=== PATIENT | female | born 1940 | race Caucasian/White ===

== ENCOUNTER → 2016-07-21 | Outpatient (CLI) | payer MEDICARE ==
[2016-07-21 13:41] LABS: Blood Urea Nitrogen 17 mg/dL (7-17); Non-African American GFR(MDRD) >60 (>60 ml/min/1.73 sqM)
--- NOTE | 2016-07-21 14:57 | CT ---
EXAMINATION TYPE: CT urogram wo/w con DATE OF EXAM: 07/21/2016 2:41 PM COMPARISON: NONE HISTORY: Microscopic hematuria TECHNIQUE: Helical acquisition through the abdomen and pelvis was obtained both with and without intr avenous contrast but without oral contrast. Delayed images were also obtained. Three-dimensional volu me acquired imaging was obtained at the CT scanner. CT DLP: 1420.8 mGycm Automated exposure control for dose reduction was used. CONTRAST: Performed with IV Contrast, patient injected with 100 mL of Omnipaque 350. FINDINGS: There is atelectatic change of both lung bases. There is no pleural or pericardial fluid. Within the abdomen, there are gallstones within the gallbladder. The liver and spleen are normal. Both adrenal glands appear normal. The pancreas is unremarkable. The collecting systems unremarkable. Both ureters are normal. The bladder is unremarkable. The uterus and ovaries are not visualized. There is diverticular change throughout the sigmoid colon without radiographic evidence of diverticul itis. There is a moderate stool load. The appendix is not visualized. Small bowel loops are normal. There is no free fluid and no free air identified. There is degenerative disc disease in the lower thoracic and lower lumbar spines. No acute osseous le pan is seen. IMPRESSION: 1. NORMAL CT UROGRAM. WE HAVE NOT DETECTED THE CAUSE OF THE PATIENT'S HEMATURIA. 2. CHOLELITHIASIS. 3. UNCOMPLICATED DIVERTICULOSIS OF THE SIGMOID COLON. 4. CONSTIPATION. 5. DEGENERATIVE CHANGE WITHIN THE SPINE.
== END | disposition home or self-care (01) ==
LOC: RADCTMAIN 12:38
PROVIDERS: ATTEND Internal Medicine
DX: K57.30 Diverticulosis of large intestine without perforation or abscess without bleeding (principal); K80.20 Calculus of gallbladder without cholecystitis without obstruction; K59.00 Constipation, unspecified; R31.29 Other microscopic hematuria
CPT/HCPCS: 82565; 84520; 74178; 36415; 74400; Q9967

== ENCOUNTER 2016-09-10 07:27 | Day surgery (SDC) | payer MEDICARE ==
[2016-09-03 14:30] VITALS: BMI 29.2
[~2016-09-10 07:27] MED LIST: HYDROmorphone 1 MG/ML 1 ML SYRINGE IVP PRN; LACTATED RINGERS 1,000 ML IV SCH; MIDAZOLAM 2 MG/2 ML VIAL IV PRN; ONDANSETRON 4 MG/2 ML VIAL IVP ONE; ceFAZolin 2 GM in SODIUM CHLORIDE 0.9% 100 ML IVPB ONE
[2016-09-10 07:56] VITALS: TEMP 97.2
[2016-09-10 08:37] LABS: INR 1.3 (<1.1); Prothrombin Time 12.9 sec (9.0-12.0)
[2016-09-10] MEDS ORDERED: fentaNYL (PF) 50 MCG/ML 2 ML AMP ONE (09:37)
[2016-09-10] MEDS ORDERED: GLYCOPYRROLATE 0.2 MG/ML 2 ML VIAL ONE (09:37)
[2016-09-10] MEDS ORDERED: PROPOFOL 10 MG/ML 20 ML VIAL IV ONE (09:37)
[2016-09-10] MEDS ORDERED: MIDAZOLAM 2 MG/2 ML VIAL ONE (09:37)
[2016-09-10] MEDS ORDERED: NEOSTIGMINE 1 MG/ML 10 ML VIAL ONE (09:37)
[2016-09-10] MEDS ORDERED: SUCCINYLCHOLINE CHLORIDE 100 MG/5 ML SYR IV ONE (09:37)
[2016-09-10] MEDS ORDERED: HYDROmorphone (PF) 1 MG/ML ONE (09:37)
[2016-09-10] MEDS ORDERED: LIDOCAINE 1% INJ 10MG/ML (20 ML MDV) ONE (09:37)
[2016-09-10] MEDS ORDERED: ROCURONIUM BROMIDE 10 MG/ML 10 ML VIAL IV ONE (09:37)
[2016-09-10] MEDS ORDERED: BUPIVACAIN-EPI 0.25%-1:200,000 30 ML VIAL SQ ONE (09:59)
[2016-09-10] MEDS ORDERED: LACTATED RINGERS 1,000 ML IV ONE ×2 (10:26→13:40)
[2016-09-10] MEDS ORDERED: HYDROcodone/APAP 5-325MG 1 EACH TAB PO ONE (12:15)
[2016-09-10 12:21] VITALS: RESP 16
--- NOTE | 2016-09-10 12:32 | P.OP ---
Date of Procedure: 09/10/16 Preoperative Diagnosis: Cholelithiasis Atrial fibrillation Postoperative Diagnosis: Same Procedure(s) Performed: Laparoscopic cholecystectomy Anesthesia: CHAD, local Surgeon: Jasmyne Ma Estimated Blood Loss (ml): 5 Pathology: other Condition: other (ASA3) Disposition: PACU Indications for Procedure: 76 years old female presents with gallstones. CT scan showed gallstones. Informed consent obtained and patient elected to undergo laparoscopic cholecystectomy possible open. The risks, benefits and potential complications explained including bleeding, infection, and inadvertent bile duct injury. Description of Procedure: The patient was brought to the operating room and placed in supine position with both arms out. General anesthesia with endotracheal intubation was performed as per anesthesia team. Chlorhexidine was used to prep the abdomen followed by application of sterile drapes. A timeout was performed to verify correct patient and correct procedure. Patient was confirmed to receive perioperative IV antibiotics , heparin 5000 units subcutaneous injection and bilateral SCDs were placed. A 5 mm skin incision was made below the left costal margin at the anterior axillary line. A Veress needle was inserted and pneumoperitoneum was established to a pressure of 15 mmHg. A 5 mm Optiview trocar was loaded on a 5 mm 30 laparoscope and the peritoneal cavity was entered under direct vision using the Optiview technique. Additional 5 mm trocar was placed in the supraumbilical location and two 5 mm trocars along the right subcostal margin. The left 5 mm trocar was upsized to 10mm. The patient was placed in reverse Trendelenburg with right side up. The fundus of the gallbladder was grasped with an atraumatic grasper and was retracted over the dome of the liver. The infundibulum was grasped with an atraumatic grasper and retracted towards the pelvis to expose the Calot's triangle. Lateral and medial peritoneal attachment of the gallbladder bladder was dissected. Circumferential dissection was carried out around the cystic artery and the cystic duct to obtain adequate length for clip application. All the surrounding fibrofatty tissue were removed. Critical view was obtained with cystic duct and cystic artery as the only two structures entering the gallbladder. Two clips were applied on the patient's side and one on the specimen side on the cystic duct first followed by the cystic artery. Endoshears were used to divide the cystic duct and the cystic artery. The gallbladder was taken off the liver bed using a L-hook. It was placed in an endocatch specimen bag and removed through the 10mm port. The gallbladder was passed off as a specimen. The abdominal cavity was inspected. The clips on the cystic duct and cystic artery stump were intact and no bleeding noted from the liver bed. All the trocar sites were examined and no evidence of bleeding. The 10mm port site was closed with two transfascial sutures of 0 Vicryl using a Carlton Odilon device. The pneumoperitoneum was evacuated and all the trocars were removed. Local anesthetic was infiltrated along the trocar sites and incisions were closed using 4-0 Monocryl followed by application of Dermabond skin glue. The sponge, instrument and needle count were correct x2. Patient was extubated and taken to post anesthesia care unit in stable condition.
[2016-09-10 13:25] VITALS: BP 139/58; PULSE 59
== END 2016-09-10 14:39 | disposition home or self-care (01) ==
LOC: OR 07:27
PROVIDERS: ATTEND Surgery
DX: K80.10 Calculus of gallbladder with chronic cholecystitis without obstruction (principal); E78.5 Hyperlipidemia, unspecified; I48.91 Unspecified atrial fibrillation; Z79.01 Long term (current) use of anticoagulants; K21.9 Gastro-esophageal reflux disease without esophagitis
CPT/HCPCS: 47562; 88304; 85610; J2250; J2710; J0690; J2405; J2001; J3010; J1170; J0330; J2704

== ENCOUNTER → 2016-10-01 | Outpatient (CLI) | payer MEDICARE ==
--- NOTE | 2016-10-01 09:36 | BD ---
EXAMINATION TYPE: MG DEXA axial skeleton. DATE OF EXAM: 10/01/2016 7:38 AM CLINICAL HISTORY: Height: 61 Weight: 159 FRAX RISK QUESTIONS: Alcohol (3 or more units per day): no Family History (Parent hip fracture): no Glucocorticoids (More than 3mos): no (Ex: prednisone, prednisolone, methylprednisolone, dexamethasone, and hydrocortisone). History of Fracture in Adulthood: no Secondary Osteoporosis: 1. Type 1 Diabetes: no 2. Hyperthyroidism: no 3. Menopause before 45: no, but hysterectomy age 45 4. Malnutrition: no 5. Chronic liver disease: no Rheumatoid Arthritis: no Current Tobacco Use: no RISK FACTORS HISTORY OF: History of Fracture: no Family History of Osteoporosis: no Drink Alcohol: very very occasionally a little wine Active: yes Diet low in dairy products/other sources of calcium: at least one serving a day Postmenopausal woman: yes Take estrogen and/or progesterone medications: not now How long: age [age] Lost more than 2 inches in height since high school: no Frequent falls: no Poor Health: no Hyperparathyroidism: no Adrenal Insufficiency: no MEDICATIONS: Prednisone or other steroids: no Thyroid Medications: no Osteoporosis Medications: no Additional Medications: Calcium & Vitamin D; cholesterol meds, heart meds EXAM MEASUREMENTS: Bone mineral densitometry was performed using the [employer] System. Bone mineral density as measured about the Lumbar spine is: ----- L1-L4(G/cm2): 1.145 T Score Values are as follows: ----- L2: -0.3 ----- L3: -0.4 ----- L4: -0.1 ----- L1-L4: -0.3 Bone mineral density has: Increased 1.6% since study of: 09/13/2012 Bone mineral density about the R hip (g/cm2): 0.941 Bone mineral density about the L hip (g/cm2): 0.878 T Score values are as follows: -----R Neck: -0.7 -----L Neck: -1.1 -----R Total: -0.2 -----L Total: -0.5 Bone mineral density has: Decreased -2.3% since study of: 09/13/2012 IMPRESSION: Normal (Values between +1 and -1 indicate normal bone mass). Consider repeating this study in 5 year s or sooner if there is some new clinical indication. Lumbar Spine, Right Neck, Right Total & Left T otal Osteopenia (T Score between -2.5 and -1 as noted by T score values Left Neck There is slightly increased risk of fracture and the patient may be considered for treatment. Re-Screen 2-5 years. NOTE: T-SCORE=SD OF THE YOUNG ADULT MEAN.
--- NOTE | 2016-10-04 13:08 | MM ---
Reason for exam: screening (asymptomatic). Last mammogram was performed 1 year ago. History: Patient is postmenopausal. Benign excisional biopsy of both breasts, 1979. Took estrogen for 10 years beginning at age 45. Physical Findings: A clinical breast exam by your physician is recommended on an annual basis and results should be correlated with mammographic findings. MG Screening Mammo w CAD Bilateral CC and MLO view(s) were taken. Prior study comparison: September 30, 2015, bilateral MG screening mammo w CAD. March 10, 2015, right breast MG diagnostic mammo RT w CAD. September 18, 2014, right breast MG work up mamm w CAD RT. September 13, 2012, bilateral digital screening mammo w/CAD. There are scattered fibroglandular densities. No significant changes when compared with prior studies. ASSESSMENT: Benign, BI-RAD 2 RECOMMENDATION: Routine screening mammogram of both breasts in 1 year.
== END | disposition home or self-care (01) ==
LOC: RADMAMWWP 06:57
PROVIDERS: ATTEND Internal Medicine
DX: Z12.31 Encounter for screening mammogram for malignant neoplasm of breast (principal); M85.88 Other specified disorders of bone density and structure, other site
CPT/HCPCS: 77080; G0202

== ENCOUNTER → 2017-07-30 | Outpatient (CLI) | payer MEDICARE ==
[2017-07-30 07:35] LABS: Appearance,Urine Clear (Clear); Bacteria,Urine Rare /hpf; Bilirubin,Urine Negative (Negative); Blood,Urine Small (Negative); Color,Urine Yellow; Glucose,Urine (UA) Negative (Negative); Hyaline Casts,Urine 1 /lpf (0-2); Ketones,Urine Negative (Negative); Leukocyte Esterase,Urine Large (Negative); Mucus,Urine Rare /hpf; PH, Urine 6.5 (5.0-8.0); Protein,Urine Negative (Negative); RBC,Urine 14 /hpf (0-5); Specific Gravity,Urine 1.015 (1.001-1.035); Squamous Epithelial Cell,Urine <1 /hpf (0-4); Urobilinogen,Urine <2.0 mg/dL (<2.0); WBC,Urine 8 /hpf (0-5)
[2017-07-30 07:37] LABS: Basophils # (A) 0.1 k/uL (0-0.2); Basophils % (A) 1 %; Eosinophils # (A) 0.1 k/uL (0-0.7); Eosinophils % (A) 2 %; HCT 43.9 % (34.0-46.0); HGB 14.2 gm/dL (11.4-16.0); Lymphocytes # (A) 1.5 k/uL (1.0-4.8); Lymphocytes % (A) 37 %; MCH 31.4 pg (25.0-35.0); MCHC 32.3 g/dL (31.0-37.0); MCV 97.1 fL (80.0-100.0); Mean Platelet Volume 6.5; Monocytes # (A) 0.3 k/uL (0-1.0); Monocytes % (A) 7 %; Neutrophils % (A) 49 %; Platelet Count 229 k/uL (150-450); RBC 4.52 m/uL (3.80-5.40); RDW 12.5 % (11.5-15.5); WBC 4.1 k/uL (3.8-10.6)
[2017-07-30 07:38] LABS: INR 1.8 (<1.2); Prothrombin Time 16.8 sec (9.0-12.0)
[2017-07-30 07:53] LABS: ALT 31 U/L (9-52); AST 35 U/L (14-36); Albumin 3.8 g/dL (3.5-5.0); Alkaline Phosphatase 53 U/L (38-126); Anion Gap 8 mmol/L; Blood Urea Nitrogen 19 mg/dL (7-17); Calcium 9.2 mg/dL (8.4-10.2); Carbon Dioxide 32 mmol/L (22-30); Chloride 104 mmol/L (98-107); Cholesterol 133 mg/dL (<200); Creatine Kinase 65 U/L (30-135); Glucose 100 mg/dL (74-99); HDL Cholesterol 54 mg/dL (40-60); LDL Cholesterol,Calculated 64 mg/dL (0-99); Potassium 4.8 mmol/L (3.5-5.1); Sodium 144 mmol/L (137-145); Total Bilirubin 0.4 mg/dL (0.2-1.3); Total Protein 6.7 g/dL (6.3-8.2); Triglycerides 74 mg/dL (<150); Uric Acid 4.8 mg/dL (3.7-7.4)
[2017-07-30 08:06] LABS: T4, Free (Free Thyroxine) 1.14 ng/dL (0.78-2.19)
== END | disposition home or self-care (01) ==
LOC: LABWHC1 07:06
PROVIDERS: ATTEND Internal Medicine
DX: Z00.00 Encounter for general adult medical examination without abnormal findings (principal); E55.9 Vitamin D deficiency, unspecified; E78.00 Pure hypercholesterolemia, unspecified; I48.0 Paroxysmal atrial fibrillation; M89.9 Disorder of bone, unspecified
CPT/HCPCS: 36415; 80053; 80061; 81001; 82550; 84439; 84443; 84550; 85025; 85610

== ENCOUNTER → 2017-10-03 | Outpatient (CLI) | payer MEDICARE ==
--- NOTE | 2017-10-04 09:04 | MM ---
Reason for exam: screening (asymptomatic). Last mammogram was performed 1 year ago. History: Patient is postmenopausal. Benign excisional biopsy of both breasts, 1979. Took estrogen for 10 years beginning at age 45. Physical Findings: A clinical breast exam by your physician is recommended on an annual basis and results should be correlated with mammographic findings. MG 3D Screening Mammo W/Cad Bilateral CC and MLO view(s) were taken. Prior study comparison: October 01, 2016, bilateral MG screening mammo w CAD. September 30, 2015, bilateral MG screening mammo w CAD. The breast tissue is heterogeneously dense. This may lower the sensitivity of mammography. There is no discrete abnormality. No significant changes when compared with prior studies. ASSESSMENT: Negative, BI-RAD 1 RECOMMENDATION: Routine screening mammogram of both breasts in 1 year.
== END | disposition home or self-care (01) ==
LOC: RADMAMWWP 06:46
PROVIDERS: ATTEND Internal Medicine
DX: Z12.31 Encounter for screening mammogram for malignant neoplasm of breast (principal)
CPT/HCPCS: 77063; 77067

== ENCOUNTER → 2018-08-12 | Outpatient (CLI) | payer MEDICARE ==
[2018-08-12 08:49] LABS: Basophils % (A) 1 %; Eosinophils # (A) 0.1 k/uL (0-0.7); Eosinophils % (A) 3 %; HGB 13.9 gm/dL (11.4-16.0); Lymphocytes # (A) 1.1 k/uL (1.0-4.8); Lymphocytes % (A) 25 %; MCH 31.3 pg (25.0-35.0); MCHC 32.3 g/dL (31.0-37.0); Mean Platelet Volume 6.7; Monocytes # (A) 0.3 k/uL (0-1.0); Monocytes % (A) 7 %; Neutrophils # (A) 2.8 k/uL (1.3-7.7); Neutrophils % (A) 62 %; Platelet Count 222 k/uL (150-450); RBC 4.43 m/uL (3.80-5.40); RDW 12.8 % (11.5-15.5); WBC 4.4 k/uL (3.8-10.6)
[2018-08-12 08:57] LABS: Amorphous Sediment,Urine Rare /hpf; Appearance,Urine Clear (Clear); Bilirubin,Urine Negative (Negative); Blood,Urine Negative (Negative); Color,Urine Yellow; Glucose,Urine (UA) Negative (Negative); Hyaline Casts,Urine 2 /lpf (0-2); Ketones,Urine Negative (Negative); Leukocyte Esterase,Urine Trace (Negative); Mucus,Urine Few /hpf; Nitrite,Urine Negative (Negative); PH, Urine 6.5 (5.0-8.0); Protein,Urine Negative (Negative); RBC,Urine 5 /hpf (0-5); Specific Gravity,Urine 1.014 (1.001-1.035); Squamous Epithelial Cell,Urine 1 /hpf (0-4); WBC,Urine 4 /hpf (0-5)
[2018-08-12 16:31] LABS: Albumin 3.9 g/dL (3.80-4.90); Albumin/Globulin Ratio 1.63 (1.60-3.17); Anion Gap 5.4 mmol/L (4.00-12.00); Calcium 9.2 mg/dL (8.7-10.3); Carbon Dioxide 32.6 mmol/L (21.6-31.8); Globulin 2.4 g/dL (1.6-3.3); LDL Cholesterol,Calculated 62.8 mg/dL (0.0-131.0); Potassium 4.2 mmol/L (3.5-5.5); Total Protein 6.3 g/dL (6.2-8.2); VLDL Calculation 11.2 mg/dL (5.00-40.00)
== END | disposition home or self-care (01) ==
LOC: LABWHC1 08:01
PROVIDERS: ATTEND Internal Medicine
DX: E78.5 Hyperlipidemia, unspecified (principal); E55.9 Vitamin D deficiency, unspecified; M85.80 Other specified disorders of bone density and structure, unspecified site; I48.0 Paroxysmal atrial fibrillation
CPT/HCPCS: 36415; 80053; 80061; 81001; 82550; 84439; 84443; 85025

== ENCOUNTER → 2018-10-06 | Outpatient (CLI) | payer MEDICARE ==
--- NOTE | 2018-10-06 08:39 | BD ---
EXAMINATION TYPE: Axial Bone Density DATE OF EXAM: 10/06/2018 COMPARISON: NONE CLINICAL HISTORY: Height: 5 FT 1/4 IN Weight: 159 FRAX RISK QUESTIONS: RISK FACTORS HISTORY OF: Active: YES Postmenopausal woman: TOTAL HYST AGE 45 Lost more than 2 inches in height since high school: YES MEDICATIONS: Additional Medications: CALCIUM , HEART MEDS, METOPROLOL, SIMVASTATIN, WARFARIN, OMEPRAZOLE Additional History: EXAM MEASUREMENTS: Bone mineral densitometry was performed using the [email or web address] System. Bone mineral density as measured about the Lumbar spine is: ----- L1-L4(G/cm2): 1.167 T Score Values are as follows: ----- L2: -0.6 ----- L3: 0.1 ----- L4: 1.2 ----- L1-L4: -0.1 Bone mineral density has: INCREASED 3.2 % since study of: 2016 Bone mineral density about the R hip (g/cm2): 0.934 Bone mineral density about the L hip (g/cm2): 0.892 T Score values are as follows: -----R Neck: -0.8 -----L Neck: -1.1 -----R Total: -0.2 -----L Total: -0.4 Bone mineral density has: INCREASED 0.6 % since study of: 2017 IMPRESSION: No evidence for osteoporosis or osteopenia. NOTE: T-SCORE=SD OF THE YOUNG ADULT MEAN.
--- NOTE | 2018-10-09 10:54 | MM ---
Reason for exam: screening (asymptomatic). Last mammogram was performed 1 year ago. History: Patient is postmenopausal. Benign excisional biopsy of both breasts, 1979. Took estrogen for 10 years beginning at age 45. Physical Findings: A clinical breast exam by your physician is recommended on an annual basis and results should be correlated with mammographic findings. MG 3D Screening Mammo W/Cad Bilateral CC and MLO view(s) were taken. Prior study comparison: October 03, 2017, bilateral MG 3d screening mammo w/cad. October 01, 2016, bilateral MG screening mammo w CAD. There are scattered fibroglandular densities. No significant changes when compared with prior studies. ASSESSMENT: Benign, BI-RAD 2 RECOMMENDATION: Routine screening mammogram of both breasts in 1 year.
== END | disposition home or self-care (01) ==
LOC: RADMAMWWP 07:12
PROVIDERS: ATTEND Internal Medicine
DX: Z12.31 Encounter for screening mammogram for malignant neoplasm of breast (principal); M85.80 Other specified disorders of bone density and structure, unspecified site
CPT/HCPCS: 77063; 77067; 77080

== ENCOUNTER → 2019-02-21 | Outpatient (CLI) | payer MEDICARE ==
[2019-02-21 07:18] LABS: Basophils % (A) 1 %; Eosinophils # (A) 0.1 k/uL (0-0.7); Eosinophils % (A) 3 %; HCT 43.3 % (34.0-46.0); HGB 14.4 gm/dL (11.4-16.0); Lymphocytes # (A) 1.4 k/uL (1.0-4.8); Lymphocytes % (A) 35 %; MCH 31.8 pg (25.0-35.0); MCHC 33.3 g/dL (31.0-37.0); MCV 95.6 fL (80.0-100.0); Mean Platelet Volume 6.9; Monocytes # (A) 0.3 k/uL (0-1.0); Monocytes % (A) 6 %; Neutrophils # (A) 2.1 k/uL (1.3-7.7); Neutrophils % (A) 53 %; Platelet Count 222 k/uL (150-450); RBC 4.53 m/uL (3.80-5.40); RDW 12.5 % (11.5-15.5)
[2019-02-21 16:42] LABS: African American GFR (CKD) 70.5 (60.0-200.0); Albumin 3.9 g/dL (3.80-4.90); Albumin/Globulin Ratio 1.77 (1.60-3.17); Anion Gap 7.8 mmol/L (4.00-12.00); BUN/Creat Ratio 13.33 Ratio (12.00-20.00); Carbon Dioxide 30.2 mmol/L (21.6-31.8); Chol/HDL Ratio 2.25; Globulin 2.2 g/dL (1.6-3.3); Potassium 4.6 mmol/L (3.5-5.5); Total Bilirubin 0.9 mg/dL (0.3-1.2); Total Protein 6.1 g/dL (6.2-8.2)
[2019-02-21 16:48] LABS: T4, Free (Free Thyroxine) 1.2 ng/dL (0.80-1.80)
[2019-02-21 17:23] LABS: Hemoglobin A1C 5.5 % (4.0-6.0)
== END | disposition home or self-care (01) ==
LOC: LABWHC1 06:37
PROVIDERS: ATTEND Internal Medicine
DX: E78.5 Hyperlipidemia, unspecified (principal); K21.9 Gastro-esophageal reflux disease without esophagitis; I48.0 Paroxysmal atrial fibrillation
CPT/HCPCS: 36415; 80053; 80061; 83036; 84439; 84443; 85025

== ENCOUNTER → 2019-08-14 | Outpatient (CLI) | payer MEDICARE ==
[2019-08-14 06:59] LABS: Basophils # (A) 0.1 k/uL (0-0.2); Basophils % (A) 1 %; Eosinophils # (A) 0.1 k/uL (0-0.7); Eosinophils % (A) 3 %; HCT 44.4 % (34.0-46.0); HGB 14.4 gm/dL (11.4-16.0); Lymphocytes # (A) 1.8 k/uL (1.0-4.8); Lymphocytes % (A) 39 %; MCH 31.6 pg (25.0-35.0); MCHC 32.5 g/dL (31.0-37.0); MCV 97.2 fL (80.0-100.0); Monocytes # (A) 0.3 k/uL (0-1.0); Monocytes % (A) 7 %; Neutrophils # (A) 2.1 k/uL (1.3-7.7); Neutrophils % (A) 46 %; Platelet Count 234 k/uL (150-450); RBC 4.57 m/uL (3.80-5.40); RDW 12.3 % (11.5-15.5); WBC 4.6 k/uL (3.8-10.6)
[2019-08-14 07:53] LABS: ALT 33 U/L (4-34); AST 44 U/L (14-36); African American GFR (CKD) 69 (>60 ml/min/1.73 sqM); Albumin/Globulin Ratio 1.3; Alkaline Phosphatase 48 U/L (38-126); Anion Gap 7 mmol/L; Blood Urea Nitrogen 17 mg/dL (7-17); Calcium 9.1 mg/dL (8.4-10.2); Carbon Dioxide 32 mmol/L (22-30); Chloride 103 mmol/L (98-107); Cholesterol 142 mg/dL (<200); Globulin 3.2 g/dL; Glucose 95 mg/dL (74-99); HDL Cholesterol 58 mg/dL (40-60); LDL Cholesterol,Calculated 70 mg/dL (0-99); Non-African American GFR(CKD) 60 (>60 ml/min/1.73 sqM); Potassium 4.4 mmol/L (3.5-5.1); Sodium 142 mmol/L (137-145); Total Bilirubin 0.8 mg/dL (0.2-1.3); Total Protein 7.2 g/dL (6.3-8.2); Triglycerides 68 mg/dL (<150)
== END | disposition home or self-care (01) ==
LOC: LABWHC1 06:39
PROVIDERS: ATTEND Internal Medicine
DX: Z00.00 Encounter for general adult medical examination without abnormal findings (principal); E78.5 Hyperlipidemia, unspecified
CPT/HCPCS: 36415; 80053; 80061; 84443; 85025

== ENCOUNTER → 2019-12-27 | Outpatient (CLI) | payer MEDICARE ==
--- NOTE | 2019-12-28 13:57 | MM ---
Reason for exam: screening (asymptomatic). Last mammogram was performed 1 year and 3 months ago. History: Patient is postmenopausal. Benign excisional biopsy of both breasts, 1979. Took estrogen for 10 years beginning at age 45. Physical Findings: A clinical breast exam by your physician is recommended on an annual basis and results should be correlated with mammographic findings. MG 3D Screening Mammo W/Cad Bilateral CC and MLO view(s) were taken. Prior study comparison: October 06, 2018, bilateral MG 3d screening mammo w/cad. October 03, 2017, bilateral MG 3d screening mammo w/cad. The breast tissue is heterogeneously dense. This may lower the sensitivity of mammography. Focal asymmetry right middle CC view, probable summation. This finding is changed when compared with previous exams. ASSESSMENT: Incomplete: need additional imaging evaluation, BI-RAD 0 RECOMMENDATION: Special view mammogram of the right breast. If lesion persists on supplemental views, image directed ultrasound is recommended. [facility] will attempt to contact patient to return for supplemental views and ultrasound if indicated.
== END | disposition home or self-care (01) ==
LOC: RADMAMWWP 15:41
PROVIDERS: ATTEND Internal Medicine
DX: Z12.31 Encounter for screening mammogram for malignant neoplasm of breast (principal)
CPT/HCPCS: 77063; 77067

== ENCOUNTER → 2020-01-04 | Outpatient (CLI) | payer MEDICARE ==
--- NOTE | 2020-01-08 11:59 | MM ---
Reason for exam: additional evaluation requested from abnormal screening. Last mammogram was performed less than 1 month ago. History: Patient is postmenopausal. Benign excisional biopsy of both breasts, 1979. Took estrogen for 10 years beginning at age 45. Physical Findings: Nurse did not find any significant physical abnormalities on exam. MG 3D Work Up W/Cad RT Spot compression CC, spot compression MLO, and ML view(s) were taken of the right breast. Prior study comparison: December 27, 2019, bilateral MG 3d screening mammo w/cad. October 06, 2018, bilateral MG 3d screening mammo w/cad. The breast tissue is heterogeneously dense. This may lower the sensitivity of mammography. Benign calcifications. These results were verbally communicated with the patient and result sheet given to the patient on 01/04/20. ASSESSMENT: Probably benign, BI-RAD 3 RECOMMENDATION: Follow-up diagnostic mammogram of the right breast in 6 months.
== END | disposition home or self-care (01) ==
LOC: RADMAMWWP 06:55
PROVIDERS: ATTEND Internal Medicine
DX: R92.8 Other abnormal and inconclusive findings on diagnostic imaging of breast (principal)
CPT/HCPCS: 77065; G0279; 77061

== ENCOUNTER → 2020-12-29 | Outpatient (CLI) | payer MEDICARE ==
--- NOTE | 2020-12-29 10:04 | BD ---
EXAMINATION TYPE: Axial Bone Density DATE OF EXAM: 12/29/2020 COMPARISON: 10/01/2016 CLINICAL HISTORY: 80 YR OLD FEMALE....ICD-10 CODE: M81.0 KNOWN OSTEOPOROSIS Height: 59.5 Weight: 150 FRAX RISK QUESTIONS: Secondary Osteoporosis: YES 3. Menopause before 45: YES AT 41 RISK FACTORS HISTORY OF: Postmenopausal woman: YES, AT AGE 41 YRS OLD Take estrogen and/or progesterone medications: YES, FOR A FEW YRS Hyperparathyroidism: NO Adrenal Insufficiency: NO MEDICATIONS: Additional Medications: STATIN FOR CHOLESTEROL, VIT D AND CALCIUM Additional History: CHOLESTEROL, EXAM MEASUREMENTS: Bone mineral densitometry was performed using the [employer] System. Bone mineral density as measured about the Lumbar spine is: ----- L1-L4(G/cm2): 1.159 T Score Values are as follows: ----- L1: -1.5 ----- L2: 0.5 ----- L3: -0.1 ----- L4: 0.3 ----- L1-L4: -0.2 Bone mineral density has: Decreased -0.3% since study of: 10.06.2018 Bone mineral density about the R hip (g/cm2): 0.965 Bone mineral density about the L hip (g/cm2): 0.951 T Score values are as follows: -----R Neck: -0.7 -----L Neck: -0.7 -----R Total: -0.3 -----L Total: -0.5 Bone mineral density has: Decreased -1.6% since study of: 10.06.2018 FRAX%s: THERE IS A 10.4% CHANCE FOR MAJOR OSTEOPOROTIC FX AND A 1.9% FOR HIP......PROBABILITY FOR FX IN 10 YRS TIME IMPRESSION: Osteopenia (T Score between -2.5 and -1). There is slightly increased risk of fracture and the patient may be considered for treatment. Re-Screen 2-5 years. NOTE: T-SCORE=SD OF THE YOUNG ADULT MEAN.
--- NOTE | 2020-12-30 10:52 | MM ---
Reason for exam: screening (asymptomatic). Last mammogram was performed 1 year ago. History: Patient is postmenopausal. Benign excisional biopsy of both breasts, 1979. Took hormonal contraceptives for 10 years. Took estrogen for 10 years beginning at age 45. Physical Findings: A clinical breast exam by your physician is recommended on an annual basis and results should be correlated with mammographic findings. MG 3D Screening Mammo W/Cad Bilateral CC and MLO view(s) were taken. Prior study comparison: January 04, 2020, right breast MG 3d work up w/cad RT. December 27, 2019, bilateral MG 3d screening mammo w/cad. There are scattered fibroglandular densities. There are benign appearing round vascular calcifications bilaterally. There is no discrete abnormality. ASSESSMENT: Benign, BI-RAD 2 RECOMMENDATION: Routine screening mammogram of both breasts in 1 year.
== END | disposition home or self-care (01) ==
LOC: RADMAMWWP 07:03
PROVIDERS: ATTEND Internal Medicine
DX: Z12.31 Encounter for screening mammogram for malignant neoplasm of breast (principal); Z78.0 Asymptomatic menopausal state; M85.80 Other specified disorders of bone density and structure, unspecified site
CPT/HCPCS: 77063; 77067; 77080

== ENCOUNTER → 2021-08-20 | Outpatient (CLI) | payer MEDICARE ==
[2021-08-20 08:25] LABS: Amorphous Sediment,Urine Rare /hpf; Appearance,Urine Clear (Clear); Bilirubin,Urine Negative (Negative); Blood,Urine Moderate (Negative); Color,Urine Yellow; Glucose,Urine (UA) Negative (Negative); Ketones,Urine Negative (Negative); Leukocyte Esterase,Urine Moderate (Negative); Mucus,Urine Occasional /hpf; Nitrite,Urine Negative (Negative); PH, Urine 6.5 (5.0-8.0); Protein,Urine Trace (Negative); RBC,Urine 77 /hpf (0-5); Specific Gravity,Urine 1.021 (1.001-1.035); Squamous Epithelial Cell,Urine 1 /hpf (0-4); WBC,Urine 8 /hpf (0-5)
[2021-08-20 10:13] LABS: Basophils # (A) 0.03 X 10*3/uL (0.00-0.10); Basophils % (A) 0.6 %; Eosinophils # (A) 0.03 X 10*3/uL (0.04-0.35); Eosinophils % (A) 0.6 %; HCT 42.3 % (37.2-46.3); HGB 14.1 g/dL (12.0-15.0); Immature Grans, Automated 0.2 %; Lymphocytes # (A) 1.24 X 10*3/uL (0.90-5.00); Lymphocytes % (A) 26.8 %; MCH 33.1 pg (27.0-32.0); MCHC 33.3 g/dL (32.0-37.0); MCV 99.3 fL (80.0-97.0); Mean Platelet Volume 9.4 fL (9.5-12.2); Monocytes # (A) 0.76 X 10*3/uL (0.20-1.00); Monocytes % (A) 16.4 %; NRBC Per 100 WBC 0 /100 WBCS (0.0-0.0); Neutrophils # (A) 2.56 X 10*3/uL (1.80-7.70); Neutrophils % (A) 55.4 %; Platelet Count 178 X 10*3/uL (140-440); RBC 4.26 X 10*6/uL (4.10-5.20); RDW 13.1 % (11.5-14.5); WBC 4.63 X 10*3/uL (4.50-10.00)
[2021-08-20 10:24] LABS: ALT 58 U/L (8-44); AST 46 U/L (13-35); Albumin 3.8 g/dL (3.8-4.9); Albumin/Globulin Ratio 1.36 (1.60-3.17); Alkaline Phosphatase 63 U/L (41-126); BUN/Creat Ratio 16.44 Ratio (12.00-20.00); Blood Urea Nitrogen 14.8 mg/dL (9.0-27.0); Calcium 8.9 mg/dL (8.7-10.3); Carbon Dioxide 26.6 mmol/L (20.0-27.5); Chloride 103 mmol/L (96-109); Chol/HDL Ratio 2.15 Ratio; Globulin 2.8 g/dL (1.6-3.3); Glucose 98 mg/dL (70-110); Magnesium 2.7 mg/dL (1.5-2.4); Non-African American GFR(CKD) 59.5 (60.0-200.0); Potassium 4.1 mmol/L (3.5-5.5); Sodium 139 mmol/L (135-145); Total Protein 6.6 g/dL (6.2-8.2); VLDL Calculation 11.14 mg/dL (5.00-40.00)
[2021-08-20 10:53] LABS: INR 3.48 (0.90-1.11); Prothrombin Time 36.1 sec (9.9-11.9)
== END | disposition home or self-care (01) ==
LOC: LABWHC1 06:57
PROVIDERS: ATTEND Internal Medicine
DX: I10 Essential (primary) hypertension (principal); I48.0 Paroxysmal atrial fibrillation; E78.2 Mixed hyperlipidemia
CPT/HCPCS: 36415; 80053; 80061; 81001; 83735; 84439; 84443; 85025; 85610

== ENCOUNTER 2021-11-17 08:50 | Day surgery (SDC) | payer MEDICARE ==
[2021-11-13 11:56] VITALS: BMI 27.4
[~2021-11-17 08:50] MED LIST changes: -HYDROmorphone 1 MG/ML 1 ML SYRINGE IVP PRN; +LIDOCAINE 1% (10MG/ML) FOR IV START INTRADERMA PRN; -MIDAZOLAM 2 MG/2 ML VIAL IV PRN; -ONDANSETRON 4 MG/2 ML VIAL IVP ONE; -ceFAZolin 2 GM in SODIUM CHLORIDE 0.9% 100 ML IVPB ONE
[2021-11-17 09:18] VITALS: TEMP 98.1
[2021-11-17] MEDS ORDERED: PROPOFOL 10 MG/ML 20 ML VIAL IV ONE (09:42)
--- NOTE | 2021-11-17 09:47 | P.GSHP ---
History of Present Illness H&P Date: 11/17/21 Chief Complaint: Abnormal stool test 81-year-old female here today for colonoscopy. She had an outpatient cologuard test performed that was reportedly abnormal. She does not see any bleeding. No bowel complaints. Last colonoscopy 10 years ago was normal. No family history of colon cancer. Past Medical History Past Medical History: Atrial Fibrillation, Eye Disorder, Hyperlipidemia Additional Past Medical History / Comment(s): macular degeneration, History of Any Multi-Drug Resistant Organisms: None Reported Past Surgical History: Breast Surgery, Cholecystectomy, Hysterectomy Additional Past Surgical History / Comment(s): bilateral cataract surgery; bilateral breast biopsy, Past Anesthesia/Blood Transfusion Reactions: No Reported Reaction Smoking Status: Never smoker - Past Family History Father Family Medical History: Coronary Artery Disease (CAD) Additional Family Medical History / Comment(s): at age 54 Mother Family Medical History: Coronary Artery Disease (CAD), Diabetes Mellitus Additional Family Medical History / Comment(s): at age 82 Sister(s) Family Medical History: No Reported History Brother(s) Family Medical History: Cancer, Myocardial Infarction (OR) Son(s) Family Medical History: No Reported History Daughter(s) Family Medical History: No Reported History Medications and Allergies Home Medications Medication Instructions Recorded Confirmed Type Calcium Carbonate/Vitamin D3 2 each PO DAILY 06/08/14 11/13/21 History [Calcium 600-Vit D3 400 Tablet] Cholecalciferol [Vitamin D3 (25 1,000 units PO DAILY 06/08/14 11/13/21 History Mcg = 1000 Iu)] Vit A/Vit C/Vit E/Zinc/Copper 2 cap PO DAILY 06/08/14 11/13/21 History [ICAPS SOFTGEL] Flecainide [Tambocor] 50 mg PO Q12HR #60 tab 06/09/14 11/13/21 Rx Metoprolol Tartrate [Lopressor] 25 mg PO BID #60 tab 06/09/14 11/13/21 Rx Omeprazole [PriLOSEC] 20 mg PO HS 09/03/16 11/13/21 History Simvastatin [Zocor] 20 mg PO HS 09/03/16 11/13/21 History Warfarin Sodium 2.5 mg PO SUMOTH 09/03/16 11/13/21 History Biotin [Biotin Disolve] 10,000 mcg PO DAILY 11/13/21 11/13/21 History Multivitamins, Thera [Multivitamin 1 tab PO DAILY 11/13/21 11/13/21 History (formulary)] Warfarin [Coumadin] 1.25 mg PO TUWEFRSA 11/13/21 11/13/21 History Allergies Allergy/AdvReac Type Severity Reaction Status Date / Time No Known Allergies Allergy Verified 11/17/21 09:15 Surgical - Exam Vital Signs Temp Pulse Resp BP Pulse Ox 98.1 F 73 16 124/82 97 11/17/21 09:16 11/17/21 09:16 11/17/21 09:16 11/17/21 09:16 11/17/21 09:16 Physical exam: General: Well-developed, well-nourished HEENT: Normocephalic, sclerae nonicteric Abdomen: Nontender, nondistended Extremities: No edema Neuro: Alert and oriented Assessment and Plan (1) Abnormal stool test Narrative/Plan: Will proceed with colonoscopy at this time Current Visit: Yes Status: Acute Code(s): R19.5 - OTHER FECAL ABNORMALITIES SNOMED Code(s): 058099042
[2021-11-17 10:32] VITALS: BP 126/74; PULSE 58; RESP 14
--- NOTE | 2021-11-17 10:32 | P.PCN ---
Date of Procedure: 11/17/21 Procedure(s) Performed: PREOPERATIVE DIAGNOSIS: Abnormal stool test POSTOPERATIVE DIAGNOSIS: Hepatic flexure polyp, diverticulosis, poor prep PROCEDURE: Colonoscopy and snare polypectomy ANESTHESIA: MAC SURGEON: Florencio Cardoza M.D. SPECIMENS: Hepatic flexure polyp ENDOSCOPIC PROCEDURE: The patient was placed on the endoscopy table in the left decubitus position. The Olympus colonoscope was inserted into the anus and passed under direct visualization to the base of the cecum. The appendiceal orifice was visualized. From that point the scope was slowly withdrawn inspecting all surfaces carefully. There were no neoplastic inflammatory or polypoid lesions throughout the cecum and ascending colon. At the hepatic flexure a small polyp was seen and removed using the snare with cautery technique. The remainder of the transverse descending sigmoid and rectum appeared normal. The patient had a poor prep so limited evaluation of the mucosa was noted throughout. Smaller polyps may have easily been missed. The patient had mild left-sided diverticulosis. Digital rectal examination was normal. The patient was taken to the recovery room in stable condition per anesthesia guidelines. RECOMMENDATIONS: Await biopsy results. Will contact patient with those results.
== END 2021-11-17 11:00 | disposition home or self-care (01) ==
LOC: ORWHC2ENDO 08:50
PROVIDERS: ATTEND Surgery
DX: R19.5 Other fecal abnormalities (principal); K63.5 Polyp of colon; K57.30 Diverticulosis of large intestine without perforation or abscess without bleeding; H35.30 Unspecified macular degeneration; E78.5 Hyperlipidemia, unspecified; I48.91 Unspecified atrial fibrillation; Z90.49 Acquired absence of other specified parts of digestive tract; Z98.42 Cataract extraction status, left eye; Z98.41 Cataract extraction status, right eye; Z98.890 Other specified postprocedural states; Z82.49 Family history of ischemic heart disease and other diseases of the circulatory system; Z83.3 Family history of diabetes mellitus; Z80.9 Family history of malignant neoplasm, unspecified; Z79.01 Long term (current) use of anticoagulants; Z79.899 Other long term (current) drug therapy
CPT/HCPCS: 88305; 45385; J2704

== ENCOUNTER → 2021-12-30 | Outpatient (CLI) | payer MEDICARE ==
--- NOTE | 2021-12-31 07:30 | MM ---
Reason for Exam: Screening (asymptomatic). Last screening mammogram was performed 12 month(s) ago. Patient History: Menarche at age 11. First Full-Term at age 19. Left ovary removed at age 45. Right ovary removed at age 45. Hysterectomy at age 45. Postmenopausal. Estrogen for 10 years from age 45 until age 55. Patient used Hormonal Contraceptives for 10 years. 1980, Bilateral Benign Excisional Biopsy. Risk Values: Rosa 5 year model risk: 1.7%. NCI Lifetime model risk: 2.2%. Prior Study Comparison: 12/27/2019 Bilateral Screening Mammogram, [facility]. 01/04/2020 Right Diagnostic Mammogram, [facility]. 12/29/2020 Bilateral Screening Mammogram, [facility]. Tissue Density: There are scattered fibroglandular densities. Findings: Analyzed By CAD. There is no suspicious group of microcalcifications or new suspicious mass in either breast. Benign appearing round vascular calcifications bilaterally. No significant change from prior examinations. Overall Assessment: Benign, BI-RAD 2 Management: Screening Mammogram of both breasts in 1 year. A clinical breast exam by your physician is recommended on an annual basis and results should be correlated with mammographic findings. Electronically signed and approved by: Blayne Mitchell D.O.
== END | disposition home or self-care (01) ==
LOC: RADMAMWWP 06:43
PROVIDERS: ATTEND Internal Medicine
DX: Z12.31 Encounter for screening mammogram for malignant neoplasm of breast (principal); Z78.0 Asymptomatic menopausal state
CPT/HCPCS: 77063; 77067

== ENCOUNTER → 2022-02-24 | Outpatient (CLI) | payer MEDICARE ==
[2022-02-24 09:52] LABS: Appearance,Urine Clear (Clear); Bilirubin,Urine Negative (Negative); Blood,Urine Negative (Negative); Color,Urine Yellow; Glucose,Urine (UA) Negative (Negative); Ketones,Urine Negative (Negative); Leukocyte Esterase,Urine Large (Negative); Mucus,Urine Rare /hpf; Nitrite,Urine Negative (Negative); Protein,Urine Negative (Negative); RBC,Urine 20 /hpf (0-5); Specific Gravity,Urine 1.015 (1.001-1.035); Squamous Epithelial Cell,Urine 2 /hpf (0-4); WBC,Urine 13 /hpf (0-5)
[2022-02-24 11:14] LABS: ALT 46 U/L (8-44); AST 54 U/L (13-35); African American GFR (CKD) 74.9 (60.0-200.0); Albumin 4.1 g/dL (3.8-4.9); Albumin/Globulin Ratio 1.39 (1.60-3.17); Alkaline Phosphatase 64 U/L (41-126); BUN/Creat Ratio 16.53 Ratio (12.00-20.00); Blood Urea Nitrogen 13.9 mg/dL (9.0-27.0); Calcium 9.4 mg/dL (8.7-10.3); Carbon Dioxide 30.1 mmol/L (20.0-27.5); Chloride 103 mmol/L (96-109); Chol/HDL Ratio 2.32 Ratio; Globulin 2.9 g/dL (1.6-3.3); Glucose 100 mg/dL (70-110); LDL Cholesterol,Calculated 74.4 mg/dL (0.0-131.0); Magnesium 2.2 mg/dL (1.5-2.4); Non-African American GFR(CKD) 64.6 (60.0-200.0); Potassium 4.8 mmol/L (3.5-5.5); Sodium 145 mmol/L (135-145)
[2022-02-24 11:19] LABS: Basophils # (A) 0.05 X 10*3/uL (0.00-0.10); Basophils % (A) 1.5 %; Eosinophils # (A) 0.09 X 10*3/uL (0.04-0.35); Eosinophils % (A) 2.7 %; HCT 40.7 % (37.2-46.3); HGB 14.2 g/dL (12.0-15.0); Immature Grans, Automated 0.3 %; Lymphocytes % (A) 39.5 %; MCH 34.7 pg (27.0-32.0); MCHC 34.9 g/dL (32.0-37.0); MCV 99.5 fL (80.0-97.0); Mean Platelet Volume 9.6 fL (9.5-12.2); Monocytes # (A) 0.32 X 10*3/uL (0.20-1.00); Monocytes % (A) 9.7 %; NRBC Per 100 WBC 0 /100 WBCS (0.0-0.0); Neutrophils # (A) 1.52 X 10*3/uL (1.80-7.70); Neutrophils % (A) 46.3 %; Platelet Count 185 X 10*3/uL (140-440); RBC 4.09 X 10*6/uL (4.10-5.20); RDW 12.9 % (11.5-14.5); WBC 3.29 X 10*3/uL (4.50-10.00)
== END | disposition home or self-care (01) ==
LOC: LABWHC1 07:04
PROVIDERS: ATTEND Internal Medicine
DX: I10 Essential (primary) hypertension (principal); E78.2 Mixed hyperlipidemia; M85.851 Other specified disorders of bone density and structure, right thigh
CPT/HCPCS: 36415; 80053; 80061; 81001; 82306; 83036; 83735; 84439; 84443; 84550; 85025

== ENCOUNTER → 2022-03-17 | Outpatient (CLI) | payer MEDICARE ==
[2022-03-17 14:10] LABS: HCT 42.5 % (37.2-46.3); HGB 14.3 g/dL (12.0-15.0); MCH 33.2 pg (27.0-32.0); MCHC 33.6 g/dL (32.0-37.0); MCV 98.6 fL (80.0-97.0); Mean Platelet Volume 9.1 fL (9.5-12.2); NRBC Per 100 WBC 0 /100 WBCS (0.0-0.0); Platelet Count 195 X 10*3/uL (140-440); RBC 4.31 X 10*6/uL (4.10-5.20); RDW 12.6 % (11.5-14.5); WBC 5.13 X 10*3/uL (4.50-10.00)
[2022-03-17 14:25] LABS: African American GFR (CKD) 70.2 (60.0-200.0); Anion Gap 6.1 mmol/L (10.00-18.00); Blood Urea Nitrogen 16.9 mg/dL (9.0-27.0); Carbon Dioxide 32.1 mmol/L (20.0-27.5); Non-African American GFR(CKD) 60.6 (60.0-200.0); Potassium 4.5 mmol/L (3.5-5.5)
== END | disposition home or self-care (01) ==
LOC: LABPAT 10:18
PROVIDERS: ATTEND Internal Medicine Clinical Cardiac Electrophysiology
DX: Z01.812 Encounter for preprocedural laboratory examination (principal); I49.5 Sick sinus syndrome; I48.0 Paroxysmal atrial fibrillation; E78.5 Hyperlipidemia, unspecified
CPT/HCPCS: 80051; 82565; 84520; 85027

== ENCOUNTER → 2022-03-23 | Outpatient (CLI) | payer MEDICARE ==
--- NOTE | 2022-03-23 10:30 | US ---
EXAMINATION TYPE: US abdomen complete DATE OF EXAM: 03/23/2022 COMPARISON: NONE CLINICAL HISTORY: R94.5 Abnormal results of liver function studies. Cholecystectomy, appendectomy abo ut 5 years ago. Abnormal results of liver function studies. TECHNIQUE: Multiple sonographic images of the abdomen are obtained. FINDINGS: EXAM MEASUREMENTS: Liver Length: 13.7 cm CBD: Obscured Spleen: 9.6 cm Right Kidney: 10.4 4.9 x 4.3 cm Left Kidney: 10.3 x 4.8 x 4.6 cm RECORDS MANAGEMENT MANAGER NOTES: Limited due to gas. Pancreas: Limited due to gas. Liver: Appears very coarse in echotexture, limited. No definitive surface nodularity. Gallbladder: Surgically absent CBD: Obscured Spleen: Appears wnl Right Kidney: No hydronephrosis or masses seen . No shadowing calculi. Left Kidney: Lobulated contour. No hydronephrosis or masses seen . No shadowing calculi. Upper IVC: Appears wnl Abd Aorta: Portions seen appear wnl, iliacs were obscured. IMPRESSION: 1. No acute process. 2. Coarsened hepatic echotexture without definitive surface nodularity or focal lesion. Findings sug gest hepatocellular disease such as mild hepatic steatosis without ultrasound morphology of cirrhosis .
== END | disposition home or self-care (01) ==
LOC: RADUSWWP 07:44
PROVIDERS: ATTEND Internal Medicine
DX: R94.5 Abnormal results of liver function studies (principal)
CPT/HCPCS: 76700

== ENCOUNTER 2022-03-29 13:32 | Day surgery (SDC) | payer MEDICARE ==
[2022-03-25 11:39] VITALS: BMI 26.3
[~2022-03-29 13:32] MED LIST changes: +ACETAMINOPHEN IV (For NPO) 1,000 MG/100 ML VIAL IVPB ONE; -LACTATED RINGERS 1,000 ML IV SCH; -LIDOCAINE 1% (10MG/ML) FOR IV START INTRADERMA PRN
[2022-03-29 15:17] VITALS: RESP 16
[2022-03-29 15:25] LABS: INR 2.3 (<1.2); Prothrombin Time 23.5 sec (9.0-12.0)
[2022-03-29] MEDS ORDERED: SODIUM CHLORIDE 0.9% 1,000 ML IV ONE (15:35)
--- NOTE | 2022-03-29 17:16 | P.HPCAR ---
History of Present Illness This is Dr. Velez dictating an H/P on this patient The patient was interviewed and examined IMPRESSION / ASSESSMENT: Paroxysmal atrial fibrillation, recurrent and symptomatic Sick Sinus Syndrome postconversion pauses Hypertension Dyslipidemia Normal TSH Failed drug therapy PLAN: Coronary vein isolation/A. fib ablation Patient is on warfarin HPI Patient continues expense episodes of atrial fibrillation She also has postconversion pauses She is on flecainide and has failed therapy Normal TSH She denies any fever chills cough expectoration OR PND No dizziness no angina like symptoms ROS: No fever chills or rigors, no cough, phlegm or expectoration, no nausea, vomiting or diarrhea, no hematuria, dysuria, no musculoskeletal complaints, no strokes or seizures, no skin lesions. EXAMINATION: Afebrile 98.4F, pulse rate in the 60s, blood pressure 132/60 mmHg Breath sounds are clear no rhonchi no crackles Rule out sounds no murmur, gallop or rub a regular this time No JVD No lower extremity edema Soft abdomen nontender REVIEW OF LABS, ECG & MEDICAL DATA INR is 2.3 Physical Exam Vitals: Vital Signs Temp Pulse Resp BP Pulse Ox 03/29/22 15:11 98.4 F 62 16 132/60 100 Intake and Output 03/29/22 03/29/22 03/29/22 06:59 14:59 22:59 Intake Total 100 Balance 100 Intake: IV 100 Other: Weight 66.3 kg Past Medical History Past Medical History: Atrial Fibrillation, Eye Disorder, Hyperlipidemia Additional Past Medical History / Comment(s): Macular degeneration. History of Any Multi-Drug Resistant Organisms: None Reported Past Surgical History: Breast Surgery, Cholecystectomy, Hysterectomy Additional Past Surgical History / Comment(s): Bilateral cataract surgery, bilateral breast biopsy, colonoscopy. Past Anesthesia/Blood Transfusion Reactions: No Reported Reaction Past Psychological History: No Psychological Hx Reported Smoking Status: Never smoker Past Alcohol Use History: Rare Past Drug Use History: None Reported - Past Family History Father Family Medical History: Coronary Artery Disease (CAD) Additional Family Medical History / Comment(s): at age 54 Mother Family Medical History: Coronary Artery Disease (CAD), Diabetes Mellitus Additional Family Medical History / Comment(s): at age 82 Sister(s) Family Medical History: No Reported History Brother(s) Family Medical History: Cancer, Myocardial Infarction ([place]) Son(s) Family Medical History: No Reported History Daughter(s) Family Medical History: No Reported History Physical Examination Vital Signs Temp Pulse Resp BP Pulse Ox 03/29/22 15:11 98.4 F 62 16 132/60 100 Intake and Output 03/29/22 03/29/22 03/29/22 06:59 14:59 22:59 Intake Total 100 Balance 100 Intake: IV 100 Other: Weight 66.3 kg Results Coagulation 03/29/22 Range/Units 15:00 PT 23.5 H (9.0-12.0) sec Current Medications Generic Name Dose Route Start Last Admin Trade Name Freq PRN Reason Stop Dose Admin Lactated Ringer's 1,000 mls @ 20 mls/hr 03/29/22 06:05 Lactated Ringers IV 04/28/22 06:06 .Q24H AGUSTÍN Sodium Chloride 1,000 mls @ 20 mls/hr 03/29/22 06:05 Saline 0.9% IV 04/28/22 06:06 .Q24H AGUSTÍN Intake and Output 03/29/22 03/29/22 03/29/22 06:59 14:59 22:59 Intake Total 100 Balance 100 Intake: IV 100 Other: Weight 66.3 kg Patient Weight 03/30/22 06:59 Weight 66.3 kg
[2022-03-29] MEDS ORDERED: fentaNYL (PF) 50 MCG/ML 2 ML AMP ONE (17:21)
[2022-03-29] MEDS ORDERED: ISOPROTERENOL 250 MCG/1.25 ML SYR IV ONE (17:21)
[2022-03-29] MEDS ORDERED: SUCCINYLCHOLINE CHLORIDE 200 MG/10 ML VIAL IV ONE (17:21)
[2022-03-29] MEDS ORDERED: HEPARIN SODIUM,PORCINE 5,000 UNIT/ML 1 ML VIAL ONE (17:21)
[2022-03-29] MEDS ORDERED: PROPOFOL 10 MG/ML 20 ML VIAL IV ONE (17:21)
[2022-03-29] MEDS ORDERED: PHENYLEPHRINE-0.9% NACL SYG 1,000 MCG/10 ML SYRINGE ONE (17:21)
[2022-03-29] MEDS ORDERED: LIDOCAINE 2% INJ 20 MG/ML (2 ML VIAL) ONE (17:21)
[2022-03-29] MEDS ORDERED: HEPARIN SOD,PORK IN 0.45% NACL 25,000 UNIT in 0.45% NACL 1 250ML.BAG IV ONE (17:39)
[2022-03-29] MEDS ORDERED: LIDOCAINE 1% INJ 10MG/ML (30 ML VIAL-PF) SQ ONE (18:03)
[2022-03-29] MEDS ORDERED: IOPAMIDOL-370 100ML BTL INJ ONE (19:50)
[2022-03-29] MEDS ORDERED: ACETAMINOPHEN TAB 325 MG TAB PO PRN (20:09)
--- NOTE | 2022-03-29 20:17 | P.PRLE ---
RE: Elizabeth Kent Dear Leigh November and underwent an A. fib ablation successfully Her arrhythmogenic vein was in the right inferior pulmonary vein and the right side mariposa Termination of atrial fibrillation occurred at this site She will continue Coumadin and all other medications as before and will follow with you within the next month or so I will stop her flecainide in about 6-8 weeks Thank you for entrusting me with the care of the patient Warm regards Sincerely Killian Velez
--- NOTE | 2022-03-29 20:28 | P.EPPROC ---
- EP Procedure Note Electrophysiology Procedure Note: PROCEDURE A. fib ablation/PVI/left atrial roof line/left atrial septal ablation DIAGNOSIS Paroxysmal Atrial fibrillation, symptomatic, refractory to therapy Sick Sinus Syndrome RESULT No left atrial appendage mass seen on intracardiac echo Evidence of pericarditis with very small pericardial effusion with fibrinous material within the pericardium, mostly at the base of the LV LA pressure elevated Successful A. fib ablation/pulmonary vein isolation of all veins using cryo- ablation Arrhythmogenic vein was the right inferior pulmonary vein and the left atrial septum Successful ablation of the left atrial roof Successful ablation of the left atrial septum Complete entrance block in all 4 veins confirmed Transient phrenic nerve paresis during RSPV ablation with the recovery within 6 minutes Segmental antral isolation around the RSPV. Completely isolated RSPV Esophageal deflection YES, left-sided esophagus PROCEDURE DETAILS Patient was brought to the EP lab in a fasting state after obtaining written informed consent. Procedure performed under general anesthesia Esophagus was intubated. Esophageal temperature monitoring with circa catheter. Esophageal deflection with an endoscope to avoid hypothermia of the esophagus. After initial muscle relaxant use, muscle relaxants were not given thereafter in order to assess phrenic nerve during procedure. Patient prepped and draped as per protocol Cryo ablation-set up with standard preparation of the cryoablation tools done. Femoral Venous access obtained on the right and left groins and sheaths placed Diagnostic catheters for the high right atrium, phrenic nerve stimulation and pacing, His bundle, coronary sinus placed Intracardiac echo catheter placed. Long sheath placed in the right atrium Left and right transseptal catheterization performed under intracardiac echo guidance. Intravenous heparin with aCT above 300 Later, catheter positioning and balloon positioning in the left atrium and pulmonary veins, under intracardiac echo guidance Diagnostic EP study with coronary sinus pacing and recording Baseline measurements: NC interval 180 ms, QRS 97 and QT 438 ms AH 91 and HV 37 ms Sinus recovery times at 600, 504 100 ms were 1134, 05/31/2006 and 06/02/2008 milliseconds Corresponding criticize recovery times were normal limits AV node Wenckebach block 350 ms Atrial fibrillation induced with mechanical stimulation in the roof area Transseptal catheterization performed RA pressure 11/5/7 LA pressure 25/8/70 Transseptal catheterization performed with standard sheath. The cryoablation sheath was then placed with an over the wire exchange without any acute complications. The cryoablation balloon was placed in the office of each pulmonary vein and all 4 pulmonary veins were isolated. IV dye was injected to confirm occlusion. Goal: achieve complete occlusion of the pulmonary vein, achieve -30 degrees C at 30 seconds and achieve -40 degrees C at 60 seconds and a time to effect of less than 60 seconds. If not, the balloon was repositioned to obtain this result After completion of Cryoblation with durations from 180-240 seconds, entrance block was confirmed with the Attain circular catheter in a roving fashion around the antrum of the pulmonary veins Phrenic nerve pacing was performed from the SVC, right innominate vein area and diaphragm voltage was monitored. Diaphragmatic contractions were also monitored manually for strength of contraction. At the end of the procedure the Achieve catheter was once again used to check for entrance block Phrenic nerve stimulation was performed to confirm diaphragmatic stimulation the end of the procedure Phrenic nerve stimulation achieved from within the RSPV. During cryoablation of the RSPV phrenic nerve paresis noted. Cryoablation terminated 114 seconds RSPV isolation in less than 60 seconds Recovery of phrenic nerve within 6 minutes Segmental cryoablation from the antrum of the RSPV Cine fluoroscopy was performed at the very end of the procedure to confirm movement of both diaphragms with inspiration and expiration Left atrial ablation performed at the level of the left atrial roof successfully Then cryoablation of the left atrial septum performed The arrhythmogenic vein was the right inferior pulmonary vein during which A. fib termination occurred During catheter manipulation in the left atrial septal area him a atrial fibril lation was induced and once again terminated during left atrial septal ablation At the end of the procedure high dose Isuprel used for stimulation from the high right atrium No inducible atrial fibrillation At the end of the procedure the patient was extubated Venous sheaths were removed and hemostasis assured with a closure device PROCEDURES PERFORMED Diagnostic EP study CS pacing and recording Left and right transseptal catheterization Catheter the mapping of the tachycardia Intracardiac echocardiography Pulmonary vein isolation with transseptal and comprehensive EPS, 44004 Drug infusion, +[id number] Left atrial roof line, +[id number] Linear ablation, left atrium, +[id number]
[2022-03-29] MEDS ORDERED: ACETAMINOPHEN IV (For NPO) 1,000 MG in EMPTY BAG 1 BAG IVPB ONE (21:15)
[2022-03-29] MEDS ORDERED: WARFARIN 2.5 MG TAB PO SCH (21:45)
[2022-03-29] MEDS: FLECAINIDE 50 MG TAB PO SCH (21:49)
[2022-03-29] MEDS: LACTATED RINGERS 1,000 ML IV SCH (23:42)
[2022-03-29] MEDS: SODIUM CHLORIDE 0.9% 1,000 ML IV SCH (23:43)
[2022-03-30] MEDS: LACTATED RINGERS 1,000 ML IV SCH (06:32)
[2022-03-30] MEDS: SODIUM CHLORIDE 0.9% 1,000 ML IV SCH (06:32)
[2022-03-30 06:54] VITALS: BP 127/80; PULSE 86; TEMP 98.2
[2022-03-30] MEDS ORDERED: WARFARIN 2.5 MG TAB PO ONE (07:00)
[2022-03-30] MEDS ORDERED: METOPROLOL TARTRATE 25 MG TAB PO SCH (09:00)
[2022-03-30] MEDS: FLECAINIDE 50 MG TAB PO SCH (09:13)
[2022-03-30 11:27] LABS: INR 2.59 (0.90-1.11); Prothrombin Time 27.2 sec (9.9-11.9)
--- NOTE | 2022-03-30 20:39 | P.DS ---
Providers Attending physician: Killian Velez Primary care physician: [facility] Course: Patient is doing well She is resting comfortably in bed She has a sore throat but she denies any chest discomfort dizziness lightheadedness Groins of healed well Lungs are clear auscultation of rhonchi no crackles Air entry is equal bilaterally Normal heart sounds no murmurs or gallop or rub line abdomen is soft Impression Paroxysmal atrial fibrillation Status post AF ablation Plan Discharge home later today Continue and granulation Continue cardiac medications and follow-up in a week Plan - Discharge Summary Discharge Rx Participant: No New Discharge Prescriptions: Continue RX: Vit A/Vit C/Vit E/Zinc/Copper [ICAPS SOFTGEL] 2 cap PO DAILY RX: Cholecalciferol [Vitamin D3 (25 Mcg = 1000 Iu)] 1,000 units PO DAILY RX: Calcium Carbonate/Vitamin D3 [Calcium 600-Vit D3 400 Tablet] 2 each PO DAILY RX: Flecainide [Tambocor] 50 mg PO Q12HR #60 tab RX: Simvastatin [Zocor] 20 mg PO HS RX: Omeprazole [PriLOSEC] 20 mg PO HS RX: Warfarin Sodium 2.5 mg PO SUMOTH RX: Warfarin [Coumadin] 1.25 mg PO RX: Biotin [Biotin Disolve] 10,000 mcg PO DAILY RX: Metoprolol Tartrate [Lopressor] 25 mg PO DAILY RX: Multivitamins, Thera [Multivitamin (formulary)] 1 tab PO DAILY Discharge Medication List RX: Calcium Carbonate/Vitamin D3 [Calcium 600-Vit D3 400 Tablet] 2 each PO DAILY 06/08/14 [History] RX: Cholecalciferol [Vitamin D3 (25 Mcg = 1000 Iu)] 1,000 units PO DAILY 06/08/14 [History] RX: Vit A/Vit C/Vit E/Zinc/Copper [ICAPS SOFTGEL] 2 cap PO DAILY 06/08/14 [Hist ory] RX: Flecainide [Tambocor] 50 mg PO Q12HR #60 tab 06/09/14 [Rx] RX: Omeprazole [PriLOSEC] 20 mg PO HS 09/03/16 [History] RX: Simvastatin [Zocor] 20 mg PO HS 09/03/16 [History] RX: Warfarin Sodium 2.5 mg PO SUMOTH 09/03/16 [History] RX: Biotin [Biotin Disolve] 10,000 mcg PO DAILY 11/13/21 [History] RX: Multivitamins, Thera [Multivitamin (formulary)] 1 tab PO DAILY 11/13/21 [History] RX: Warfarin [Coumadin] 1.25 mg PO [id number] 11/13/21 [History] RX: Metoprolol Tartrate [Lopressor] 25 mg PO DAILY 03/25/22 [History] Follow up Appointment(s)/Referral(s): Killian Velez MD [STAFF PHYSICIAN] - 04/06/22 9:15 am (Follow-up with Ketty John in 7-10 days) Patient Instructions/Handouts: Cardiac Ablation (DC) Activity/Diet/Wound Care/Special Instructions: Post EP study - Ablation instructions 1. Keep access sites dry for 2 days. 2. No heavy lifting or straining for 2 days. 3. Avoid bending the hips repeatedly for 2 days. 4. You may go up and down stairs slowly Call if the following is noted 1. Bleeding, increasing swelling or pain at the access sites. 2. Increasing chest discomfort, especially upon taking a deep breath. 3. Increasing shortness of breath, at rest or with exertion. 4. Undue cough / phlegm 5. Difficulty or pain while swallowing. 6. Pain or change in color in the extremities. 7. Fever, chills, rigors. 8. Increasing headache or neurologic symptoms. 9. Dizziness, fainting, palpitations Discharge Disposition: HOME SELF-CARE
[2022-03-31] MEDS ORDERED: WARFARIN 2.5 MG TAB PO SCH (18:00)
[2022-04-01] MEDS ORDERED: WARFARIN 2.5 MG TAB PO SCH (18:00)
== END 2022-03-30 10:13 | disposition home or self-care (01) ==
LOC: CATHEP 13:32 → 6NMEDSUR 19:55 → CATHEP 03-30 10:13
PROVIDERS: ATTEND Internal Medicine Clinical Cardiac Electrophysiology
DX: I48.0 Paroxysmal atrial fibrillation (principal); I49.5 Sick sinus syndrome; I10 Essential (primary) hypertension; E78.5 Hyperlipidemia, unspecified; Z90.49 Acquired absence of other specified parts of digestive tract; Z90.410 Acquired total absence of pancreas; Z98.41 Cataract extraction status, right eye; Z98.42 Cataract extraction status, left eye; Z82.49 Family history of ischemic heart disease and other diseases of the circulatory system; Z79.899 Other long term (current) drug therapy
CPT/HCPCS: 93623; 93656; 93657; 85610 ×2; J2001; J0131; Q9967; J1644

== ENCOUNTER → 2022-09-20 | Outpatient (CLI) | payer MEDICARE ==
[2022-09-20 11:17] LABS: Basophils # (A) 0.04 X 10*3/uL (0.00-0.10); Basophils % (A) 1.1 %; Eosinophils % (A) 2.8 %; HCT 36.6 % (37.2-46.3); HGB 13.1 g/dL (12.0-15.0); Immature Grans, Automated 0.3 %; Lymphocytes # (A) 1.26 X 10*3/uL (0.90-5.00); Lymphocytes % (A) 35.1 %; MCH 35.6 pg (27.0-32.0); MCHC 35.8 g/dL (32.0-37.0); MCV 99.5 fL (80.0-97.0); Mean Platelet Volume 9.4 fL (9.5-12.2); Monocytes # (A) 0.41 X 10*3/uL (0.20-1.00); Monocytes % (A) 11.4 %; NRBC Per 100 WBC 0 /100 WBCS (0.0-0.0); Neutrophils # (A) 1.77 X 10*3/uL (1.80-7.70); Neutrophils % (A) 49.3 %; Platelet Count 200 X 10*3/uL (140-440); RBC 3.68 X 10*6/uL (4.10-5.20); WBC 3.59 X 10*3/uL (4.50-10.00)
[2022-09-20 11:19] LABS: Appearance,Urine Cloudy (Clear); Bilirubin,Urine Negative (Negative); Blood,Urine Negative (Negative); Color,Urine Yellow (Yellow); Ketones,Urine Trace mg/dL (Negative); Nitrite,Urine Negative (Negative); PH, Urine 5.5 (5.0-8.0); Specific Gravity,Urine 1.019 (1.001-1.030)
[2022-09-20 11:36] LABS: ALT 22 U/L (8-44); AST 38 U/L (13-35); Albumin 3.9 g/dL (3.8-4.9); Albumin/Globulin Ratio 1.56 (1.60-3.17); Alkaline Phosphatase 56 U/L (41-126); BUN/Creat Ratio 21.13 Ratio (12.00-20.00); Blood Urea Nitrogen 16.9 mg/dL (9.0-27.0); Calcium 9.5 mg/dL (8.7-10.3); Carbon Dioxide 28.1 mmol/L (20.0-27.5); Chloride 107 mmol/L (96-109); Chol/HDL Ratio 2.37 Ratio; Globulin 2.5 g/dL (1.6-3.3); Glucose 97 mg/dL (70-110); LDL Cholesterol,Calculated 73.3 mg/dL (0.0-131.0); Non-African American GFR(CKD) 68.2 (60.0-200.0); Potassium 4.2 mmol/L (3.5-5.5); Sodium 145 mmol/L (135-145); Total Protein 6.4 g/dL (6.2-8.2); Uric Acid 4.6 mg/dL (2.9-7.7); VLDL Calculation 11.06 mg/dL (5.00-40.00)
[2022-09-20 12:07] LABS: Bacteria,Urine None Seen /HPF (None Seen); Calcium Oxalate Crystals,Urine Present /LPF (None Seen)
== END | disposition home or self-care (01) ==
LOC: LABWHC1 06:40
PROVIDERS: ATTEND Internal Medicine
DX: Z00.00 Encounter for general adult medical examination without abnormal findings (principal); I10 Essential (primary) hypertension; E78.2 Mixed hyperlipidemia
CPT/HCPCS: 36415; 80053; 80061; 81001; 83036; 83735; 84439; 84443; 84550; 85025

== ENCOUNTER → 2022-12-31 | Outpatient (CLI) | payer MEDICARE ==
--- NOTE | 2022-12-31 09:37 | BD ---
EXAMINATION TYPE: Axial Bone Density DATE OF EXAM: 12/31/2022 CLINICAL HISTORY: 82 years old Female. ICD-10 CODE: M85.851 right thigh bone issue Height: 60.5 Weight: 145.0 FRAX RISK QUESTIONS: Alcohol (3 or more units per day): no Family History (Parent hip fracture): no Glucocorticoids (More than 3mos): no (Ex: prednisone, prednisolone, methylprednisolone, dexamethasone, and hydrocortisone). History of Fracture in Adulthood: no Secondary Osteoporosis: 1. Type 1 Diabetes: no 2. Hyperthyroidism: no 3. Menopause before 45: yes 4. Malnutrition: no 5. Chronic liver disease: no Rheumatoid Arthritis: no Current Tobacco Use: no RISK FACTORS HISTORY OF: Surgery to Spine/Hip(right/left)/Wrist (right/left): no Family History of Osteoporosis: no Active: yes Diet low in dairy products/other sources of calcium: no Postmenopausal woman: yes Lost more than 2 inches in height since high school: no MEDICATIONS: Additional History: EXAM MEASUREMENTS: Bone mineral densitometry was performed using the [employer] System. Bone mineral density as measured about the Lumbar spine is: ----- L1-L4(G/cm2): 1.188 T Score Values are as follows: ----- L1: -1.3 ----- L2: -0.1 ----- L3: 0.7 ----- L4: 0.7 ----- L1-L4: 0.1 Z Score Values are as follows: ----- L1: 0.5 ----- L2: 1.7 ----- L3: 2.6 ----- L4: 2.5 ----- L1-L4: 1.9 Bone mineral density has: increased 2.5 % since study of: 12.29.2020 Bone mineral density about the R hip (g/cm2): 0.946 Bone mineral density about the L hip (g/cm2): 0.924 T Score values are as follows: -----R Neck: -1.1 -----L Neck: -1.4 -----R Total: -0.5 -----L Total: -0.7 Z Score values are as follows: -----R Neck: 1.2 -----L Neck: 0.9 -----R Total: 1.7 -----L Total: 1.5 Bone mineral density has: decreased -2.4 % since study of: 8.2.2020 FRAX%s: The graph provided illustrates a 13.0% chance for a major osteoporotic fx and a 3.3% chance f or the hips probability for fx in 10 years time. IMPRESSION: Osteopenia (T Score between -2.5 and -1). There is slightly increased risk of fracture and the patient may be considered for treatment. Re-Screen 2-5 years. NOTE: T-SCORE=SD OF THE YOUNG ADULT MEAN.
--- NOTE | 2023-01-03 08:06 | MM ---
Reason for Exam: Screening (asymptomatic). Last screening mammogram was performed 12 month(s) ago. Patient History: Menarche at age 11. First Full-Term at age 19. Left ovary removed at age 45. Right ovary removed at age 45. Hysterectomy at age 45. Postmenopausal. Estrogen for 10 years from age 45 until age 55. Patient used Hormonal Contraceptives for 10 years. 1980, Bilateral Benign Excisional Biopsy. Risk Values: Rosa 5 year model risk: 1.6%. NCI Lifetime model risk: 2.0%. Prior Study Comparison: 01/04/2020 Right Diagnostic Mammogram, [facility]. 12/29/2020 Bilateral Screening Mammogram, [facility]. 12/30/2021 Bilateral MG 3D screening mammo w/cad, [facility]. Tissue Density: The breast tissue is almost entirely fat. Findings: Analyzed By CAD. There is no suspicious group of microcalcifications or new suspicious mass in either breast. Benign-appearing calcifications bilaterally. Overall Assessment: Benign, BI-RAD 2 Management: Screening Mammogram of both breasts in [address] [facility] will attempt to contact patient to return for supplemental views and ultrasound if indicated. Patient should continue monthly self-breast exams. A clinical breast exam by your physician is recommended on an annual basis. This exam should not preclude additional follow-up of suspicious palpable abnormalities. Note on Rosa scores and lifetime risk: 1. A Rosa score greater than 3% is considered moderate risk. If this is the case, consider specialist referral to assess eligibility for a risk reducing agent. 2. If overall lifetime risk for the development of breast cancer is 20% or higher, the patient may qualify for future screening with alternating mammogram and breast MRI. Electronically signed and approved by: Judd Rebolledo DO
== END | disposition home or self-care (01) ==
LOC: RADBDWWP 07:09
PROVIDERS: ATTEND Internal Medicine
DX: Z12.31 Encounter for screening mammogram for malignant neoplasm of breast (principal); M85.89 Other specified disorders of bone density and structure, multiple sites; Z78.0 Asymptomatic menopausal state
CPT/HCPCS: 77063; 77067; 77080

== ENCOUNTER 2023-05-14 08:30 | Emergency (ER) | payer MEDICARE ==
--- NOTE | 2023-05-14 08:59 | ED ---
General Adult HPI - General Chief complaint: Arrhythmia/Palpitations Stated complaint: Afib Episode, History of AFIB Time Seen by Provider: 05/14/23 08:35 Source: patient, RN notes reviewed Mode of arrival: ambulatory Limitations: no limitations - History of Present Illness Initial comments: Patient is a pleasant 82-year-old female presenting to the emergency department with concerns for possible A. fib. Patient was at a restaurant at 6:30 when she had an episode of dizziness that lasted just a couple seconds. Following this patient did have palpitations that felt irregular and also lasted just a short time. Patient since has felt normal. Patient continues to have no symptoms at this time. He should denies ever having chest discomfort or dyspnea. Patient does have a history of similar symptoms previously associated with atrial fibrillation. Patient is on anticoagulation. - Related Data Home Medications Medication Instructions Recorded Confirmed Calcium Carbonate/Vitamin D3 2 each PO DAILY 06/08/14 03/25/22 [Calcium 600-Vit D3 400 Tablet] Cholecalciferol [Vitamin D3 (25 1,000 units PO DAILY 06/08/14 03/25/22 Mcg = 1000 Iu)] Vit A/Vit C/Vit E/Zinc/Copper 2 cap PO DAILY 06/08/14 03/25/22 [ICAPS SOFTGEL] Omeprazole [PriLOSEC] 20 mg PO HS 09/03/16 03/25/22 Simvastatin [Zocor] 20 mg PO HS 09/03/16 03/25/22 Warfarin Sodium 2.5 mg PO SUMOTH 09/03/16 03/29/22 Biotin [Biotin Disolve] 10,000 mcg PO DAILY 11/13/21 03/25/22 Multivitamins, Thera [Multivitamin 1 tab PO DAILY 11/13/21 03/25/22 (formulary)] Warfarin [Coumadin] 1.25 mg PO [id number] 11/13/21 03/29/22 Metoprolol Tartrate [Lopressor] 25 mg PO DAILY 03/25/22 03/25/22 Previous Rx's Medication Instructions Recorded Flecainide [Tambocor] 50 mg PO Q12HR #60 tab 06/09/14 Allergies Allergy/AdvReac Type Severity Reaction Status Date / Time No Known Allergies Allergy Verified 05/14/23 08:34 Review of Systems ROS Statement: Those systems with pertinent positive or pertinent negative responses have been documented in the HPI. ROS Other: All systems not noted in ROS Statement are negative. Constitutional: Denies: fever Eyes: Denies: eye pain ENT: Denies: ear pain Respiratory: Denies: dyspnea Cardiovascular: Reports: as per HPI, palpitations. Denies: chest pain Endocrine: Denies: fatigue Gastrointestinal: Denies: abdominal pain Genitourinary: Denies: dysuria Musculoskeletal: Denies: back pain Past Medical History Past Medical History: Atrial Fibrillation, Eye Disorder, Hyperlipidemia Additional Past Medical History / Comment(s): Macular degeneration. History of Any Multi-Drug Resistant Organisms: None Reported Past Surgical History: Breast Surgery, Cholecystectomy, Hysterectomy Additional Past Surgical History / Comment(s): Bilateral cataract surgery, bilateral breast biopsy, colonoscopy. Past Anesthesia/Blood Transfusion Reactions: No Reported Reaction Past Psychological History: No Psychological Hx Reported Smoking Status: Never smoker Past Alcohol Use History: Rare Past Drug Use History: None Reported - Past Family History Father Additional Family Medical History / Comment(s): at age 54 Mother Additional Family Medical History / Comment(s): at age 82 Brother(s) Family Medical History: Cancer, Myocardial Infarction ([place]) Son(s) Family Medical History: No Reported History Daughter(s) Family Medical History: No Reported History General Exam Limitations: no limitations General appearance: alert, in no apparent distress Head exam: Present: normocephalic Eye exam: Present: normal appearance Neck exam: Present: normal inspection Respiratory exam: Present: normal lung sounds bilaterally Cardiovascular Exam: Present: regular rate, normal rhythm, normal heart sounds. Absent: irregular rhythm Expanded Peripheral pulses: 2+: Radial (R), Radial (L), Dorsalis Pedis (R), Dorsalis Pedis (L) GI/Abdominal exam: Present: soft. 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 sent in by a medical professional or institution (, [facility], SCHOOL CUSTODIAN, urgent care, hospital, or long term...) When possible be specific @ -No Did you speak to anyone other than the patient for history (EMS, parent, family, police, friend...)? What history was obtained from this source @ -No Did you review nursing and triage notes (agree or disagree)? Why? @ -I reviewed and agree with nursing and triage notes Were old charts reviewed (outside hosp., previous admission, EMS record, old EKG, old radiological studies, urgent care reports/EKG's, long term records)? Report findings @ -No old charts were reviewed Differential Diagnosis (chest pain, altered mental status, abdominal pain women, abdominal pain men, vaginal bleeding, weakness, fever, dyspnea, syncope, headache, dizziness, GI bleed, back pain, seizure, CVA, palpatations, mental health, musculoskeletal)? @ -Differential Palpitations Ventricular arrhythmias, atrial arrhythmias, myocardial infarction, anemia, thyrotoxicosis, electrolyte imbalance, hypokalemia, pulmonary embolism, pulmona ry disease, drugs, alcohol, anxiety, stress.... This is not meant to be an all-inclusive list. EKG interpreted by me (3pts min.). @ -As above X-rays interpreted by me (1pt min.). @ -Chest x-ray shows no acute process. CT interpreted by me (1pt min.). @ -None done U/S interpreted by me (1pt. min.). @ -None done What testing was considered but not performed or refused? (CT, X-rays, U/S, labs)? Why? @ -None What meds were considered but not given or refused? Why? @ -None Did you discuss the management of the patient with other professionals (professionals i.e. [facility]le, SCHOOL CUSTODIAN, lab, RT, psych nurse, social director, staff assistant, teacher, accounting officer, rn field case manager)? Give summary @ -No Was smoking cessation discussed for >3mins.? @ -No Was critical care preformed (if so, how long)? @ -No Were there social determinants of health that impacted care today? How? (Homelessness, low income, unemployed, alcoholism, drug addiction, transportation, low edu. Level, literacy, decrease access to med. care, alf, rehab)? @ -No Was there de-escalation of care discussed even if they declined (Discuss DNR or withdrawal of care, Hospice)? DNR status @ -No What co-morbidities impacted this encounter? (DM, HTN, Smoking, COPD, CAD, Cancer, CVA, ARF, Chemo, Hep., AIDS, mental health diagnosis, sleep apnea, morbid obesity)? @ -None Was patient admitted / discharged? Hospital course, mention meds given and route, prescriptions, significant lab abnormalities, going to OR and other pertinent info. @ -Patient reevaluated and remained symptom-free. Patient requesting discharge home. Patient and family updated on results and need for follow-up. Specifically updated on pending T3 and T4 levels and need follow-up with primary care physician regarding this. Undiagnosed new problem with uncertain prognosis? @ -No Drug Therapy requiring intensive monitoring for toxicity (Heparin, Nitro, Insulin, Cardizem)? @ -No Were any procedures done? @ -No Diagnosis/symptom? @ -Palpitations Acute, or Chronic, or Acute on Chronic? @ -Acute Uncomplicated (without systemic symptoms) or Complicated (systemic symptoms)? @ -default Side effects of treatment? @ -No Exacerbation, Progression, or Severe Exacerbation? @ -No Poses a threat to life or bodily function? How? (Chest pain, [place], [place], pneumonia, PE, COPD, DKA, ARF, appy, cholecystitis, CVA, Diverticulitis, Homicidal, Suicidal, threat to staff... and all critical care pts) @ -No - Lab Data Result diagrams: 05/14/23 09:18 05/14/23 09:18 Lab Results 05/14/23 05/14/23 05/14/23 Range/Units 09:18 09:18 09:18 WBC 7.0 (3.8-10.6) k/uL RBC 4.40 (3.80-5.40) m/uL Hgb 14.0 (11.4-16.0) gm/dL Hct 41.9 (34.0-46.0) % MCV 95.4 (80.0-100.0) fL MCH 31.7 (25.0-35.0) pg MCHC 33.3 (31.0-37.0) g/dL RDW 13.0 (11.5-15.5) % Plt Count 183 (150-450) k/uL MPV 7.3 Neutrophils % 76 % Lymphocytes % 16 % Monocytes % 5 % Eosinophils % 1 % Basophils % 1 % Neutrophils # 5.3 (1.3-7.7) k/uL Lymphocytes # 1.1 (1.0-4.8) k/uL Monocytes # 0.3 (0-1.0) k/uL Eosinophils # 0.1 (0-0.7) k/uL Basophils # 0.0 (0-0.2) k/uL PT 12.5 (10.0-12.5) sec INR 1.2 H (<1.2) APTT 27.1 (22.0-30.0) sec Sodium 140 (137-145) mmol/L Potassium 3.8 (3.5-5.1) mmol/L Chloride 104 (98-107) mmol/L Carbon Dioxide 28 (22-30) mmol/L Anion Gap 8 mmol/L BUN 19 H (7-17) mg/dL Creatinine 0.75 (0.52-1.04) mg/dL Est GFR (CKD-EPI)AfAm 85 (>60 ml/min/1.73 sqM) Est GFR (CKD-EPI)NonAf 74 (>60 ml/min/1.73 sqM) Glucose 138 H (74-99) mg/dL Calcium 9.1 (8.4-10.2) mg/dL Magnesium 2.1 (1.6-2.3) mg/dL Total Bilirubin 0.6 (0.2-1.3) mg/dL AST 34 (14-36) U/L ALT 17 (4-34) U/L Alkaline Phosphatase 56 (38-126) U/L Troponin I (0.000-0.034) ng/mL Total Protein 6.9 (6.3-8.2) g/dL Albumin 3.8 (3.5-5.0) g/dL TSH 0.054 L (0.465-4.680) mIU/L 05/14/23 Range/Units 09:18 WBC (3.8-10.6) k/uL RBC (3.80-5.40) m/uL Hgb (11.4-16.0) gm/dL Hct (34.0-46.0) % MCV (80.0-100.0) fL MCH (25.0-35.0) pg MCHC (31.0-37.0) g/dL RDW (11.5-15.5) % Plt Count (150-450) k/uL MPV Neutrophils % % Lymphocytes % % Monocytes % % Eosinophils % % Basophils % % Neutrophils # (1.3-7.7) k/uL Lymphocytes # (1.0-4.8) k/uL Monocytes # (0-1.0) k/uL Eosinophils # (0-0.7) k/uL Basophils # (0-0.2) k/uL PT (10.0-12.5) sec INR (<1.2) APTT (22.0-30.0) sec Sodium (137-145) mmol/L Potassium (3.5-5.1) mmol/L Chloride (98-107) mmol/L Carbon Dioxide (22-30) mmol/L Anion Gap mmol/L BUN (7-17) mg/dL Creatinine (0.52-1.04) mg/dL Est GFR (CKD-EPI)AfAm (>60 ml/min/1.73 sqM) Est GFR (CKD-EPI)NonAf (>60 ml/min/1.73 sqM) Glucose (74-99) mg/dL Calcium (8.4-10.2) mg/dL Magnesium (1.6-2.3) mg/dL Total Bilirubin (0.2-1.3) mg/dL AST (14-36) U/L ALT (4-34) U/L Alkaline Phosphatase (38-126) U/L Troponin I <0.012 (0.000-0.034) ng/mL Total Protein (6.3-8.2) g/dL Albumin (3.5-5.0) g/dL TSH (0.465-4.680) mIU/L Disposition Clinical Impression: Palpitations Disposition: HOME SELF-CARE Condition: Stable Instructions (If sedation given, give patient instructions): Heart Palpitations (ED) Additional Instructions: Please do follow-up with your primary care physician and pathology manager in the next couple days for recheck. Have primary care physician check T3 and T4 levels. Return for increased heart rate, chest pain, difficulty breathing, worsening or change in symptoms or any other concerns Is patient prescribed a controlled substance at d/c from ED?: No Referrals: Leigh Strong MD [Primary Care Provider] - 1-2 days Time of Disposition: 11:21
[2023-05-14 09:22] VITALS: PULSE 54; RESP 18
[2023-05-14 09:29] LABS: Basophils % (A) 1 %; Eosinophils # (A) 0.1 k/uL (0-0.7); Eosinophils % (A) 1 %; HCT 41.9 % (34.0-46.0); Lymphocytes # (A) 1.1 k/uL (1.0-4.8); Lymphocytes % (A) 16 %; MCH 31.7 pg (25.0-35.0); MCHC 33.3 g/dL (31.0-37.0); MCV 95.4 fL (80.0-100.0); Mean Platelet Volume 7.3; Monocytes # (A) 0.3 k/uL (0-1.0); Monocytes % (A) 5 %; Neutrophils # (A) 5.3 k/uL (1.3-7.7); Neutrophils % (A) 76 %; Platelet Count 183 k/uL (150-450)
[2023-05-14 09:37] LABS: INR 1.2 (<1.2); Partial Thromboplastin Time 27.1 sec (22.0-30.0); Prothrombin Time 12.5 sec (10.0-12.5)
[2023-05-14 09:44] LABS: ALT 17 U/L (4-34); AST 34 U/L (14-36); African American GFR (CKD) 85 (>60 ml/min/1.73 sqM); Albumin 3.8 g/dL (3.5-5.0); Alkaline Phosphatase 56 U/L (38-126); Anion Gap 8 mmol/L; Blood Urea Nitrogen 19 mg/dL (7-17); Calcium 9.1 mg/dL (8.4-10.2); Carbon Dioxide 28 mmol/L (22-30); Chloride 104 mmol/L (98-107); Glucose 138 mg/dL (74-99); Magnesium 2.1 mg/dL (1.6-2.3); Non-African American GFR(CKD) 74 (>60 ml/min/1.73 sqM); Potassium 3.8 mmol/L (3.5-5.1); Sodium 140 mmol/L (137-145); Total Bilirubin 0.6 mg/dL (0.2-1.3); Total Protein 6.9 g/dL (6.3-8.2)
--- NOTE | 2023-05-14 09:58 | XR ---
EXAMINATION TYPE: XR chest 2V DATE OF EXAM: 05/14/2023 9:29 AM CLINICAL INDICATION:Female, 82 years old with history of dysrhythmia; H COMPARISON: Chest radiographs from 06/08/2014 TECHNIQUE: XR chest 2V Frontal and lateral views of the chest. FINDINGS: Lungs/Pleura: There is flattening of the diaphragm with increased lucency of the lungs. No evidence o f pneumothorax, pleural effusion or focal consolidation. Pulmonary vascularity: Unremarkable. Heart/mediastinum: Cardiomediastinal silhouette is unremarkable. Musculoskeletal: No acute osseous pathology. Other findings: None IMPRESSION: 1. No acute cardiopulmonary disease process. 2. COPD changes.
[2023-05-14 11:52] LABS: T4, Free (Free Thyroxine) 1.12 ng/dL (0.78-2.19)
[2023-05-14 12:01] VITALS: BP 121/67; TEMP 98
== END 2023-05-14 11:49 | disposition home or self-care (01) ==
LOC: EC 08:30
DX: R00.2 Palpitations (principal); R00.1 Bradycardia, unspecified; I48.91 Unspecified atrial fibrillation; E78.5 Hyperlipidemia, unspecified; Z79.01 Long term (current) use of anticoagulants; Z79.899 Other long term (current) drug therapy
CPT/HCPCS: 36415; 71046; 80053; 83735; 84439; 84443; 84481; 84484; 85025; 85610; 85730; 93005; 99285

== ENCOUNTER → 2023-08-29 | Outpatient (CLI) | payer MEDICARE ==
[2023-08-29 12:17] LABS: Chol/HDL Ratio 2.43 Ratio; LDL Cholesterol,Calculated 75.7 mg/dL (0.0-131.0); VLDL Calculation 13.18 mg/dL (5.00-40.00)
== END | disposition home or self-care (01) ==
LOC: LABWHC1 06:50
PROVIDERS: ATTEND Nurse Practitioner Adult Health
DX: I48.0 Paroxysmal atrial fibrillation (principal); E78.5 Hyperlipidemia, unspecified
CPT/HCPCS: 36415; 80061; 84443

== ENCOUNTER → 2024-01-02 | Outpatient (CLI) | payer MEDICARE ==
--- NOTE | 2024-01-31 08:21 | MM ---
Reason for Exam: Screening (asymptomatic). Last screening mammogram was performed 12 month(s) ago. Patient History: Menarche at age 11. First Full-Term at age 19. Left ovary removed at age 45. Right ovary removed at age 45. Hysterectomy at age 45. Postmenopausal. Estrogen for 10 years from age 45 until age 55. Patient used Hormonal Contraceptives for 10 years. 1980, Bilateral Benign Excisional Biopsy. Risk Values: Rosa 5 year model risk: 1.5%. NCI Lifetime model risk: 1.7%. Prior Study Comparison: 12/29/2020 Bilateral Screening Mammogram, [facility]. 12/30/2021 Bilateral MG 3D screening mammo w/cad, [facility]. 12/31/2022 Bilateral MG 3D screening mammo w/cad, [facility]. Tissue Density: The breasts are heterogeneously dense, which may obscure small masses. Findings: Analyzed By CAD. Right breast: There is no suspicious group of microcalcifications or new suspicious mass. Left breast: There is no suspicious group of microcalcifications or new suspicious mass. Overall Assessment: Negative, BI-RAD 1 Management: Screening Mammogram of both breasts in [address] [facility] will attempt to contact patient to return for supplemental views and ultrasound if indicated. Patient should continue monthly self-breast exams. A clinical breast exam by your physician is recommended on an annual basis. This exam should not preclude additional follow-up of suspicious palpable abnormalities. Note on Rosa scores and lifetime risk: 1. A Rosa score greater than 3% is considered moderate risk. If this is the case, consider specialist referral to assess eligibility for a risk reducing agent. 2. If overall lifetime risk for the development of breast cancer is 20% or higher, the patient may qualify for future screening with alternating mammogram and breast MRI. Electronically signed and approved by: Jdud Rebolledo DO
--- NOTE | 2024-02-01 15:24 | HP ---
HISTORY AND PHYSICAL CHIEF COMPLAINT: "I have palpitations." HISTORY OF PRESENT ILLNESS: This is an 83-year-old female with a previous medical history significant for hypertension, hypertensive cardiovascular disease, mixed hyperlipidemia, paroxysmal atrial fibrillation, status post atrial fibrillation ablation that was done in February [address] Velez. History of gastroesophageal reflux disease, osteoarthritis, the patient has been on chronic anticoagulation with Xarelto 20 mg orally once every day, the patient has been having issues with atrial fibrillation recently, her medications were adjusted, she was placed on flecainide 50 mg orally once every day along with metoprolol 12.5 mg once every day along with her Xarelto, apparently she was going with her for doctor's appointment and while she was in the car trying to get up, she got severe palpitation and she felt dizzy, lightheaded, almost passed out, she stayed in the car for a few minutes, the episode resolved on its own, she was trying to get out of the car and this happened again. She ended up calling 911, the patient was brought to the emergency department at [facility]. The patient was found to be in atrial fibrillation with rapid ventricular response, while she was in the ER she converted to sinus rhythm. The patient felt a lot better after that, she was getting ready to be discharged home and she was sitting at the edge of the bed, and all of a sudden she developed to have a significant atrial fibrillation with rapid ventricular response. She also found that she is going to pass out, she was helped back into the bed, and the decision was made to admit the patient to the hospital and cardiology consultation. Apparently, the patient has been getting in and out of atrial fibrillation and when she snaps out of atrial fibrillation, goes into the sinus pauses, the patient was placed on an external pacer and Cardiology was contacted. It was recommended for the patient to be started on amiodarone drip. She was taken off the metoprolol and flecainide, and she was admitted to the hospital with a permanent pacemaker to be placed in the next 24 hours. PAST MEDICAL HISTORY: 1. Hypertension and hypertensive cardiovascular disease. 2. Hyperlipidemia. 3. Paroxysmal atrial fibrillation. 4. Gastroesophageal reflux disease. 5. Osteoarthritis. PAST SURGICAL HISTORY: 1. Total hysterectomy in 1979. 2. Cholecystectomy in 2016. 3. Bilateral cataract surgery in 2009. 4. Last colonoscopy 11/17/2021. 5. Atrial fibrillation ablation on 03/18/2022. MEDICATIONS: She is currently on the following medications, 1. Xarelto 20 mg once everyday. 2. Icaps Areds 2 tablets orally once everyday. 3. Metoprolol 25 mg half a tablet once everyday. 4. Flecainide acetate 50 mg orally once everyday. 5. Calcium and vitamin D 1000 mg/400 international units orally twice everyday. 6. Biotin 62173 mcg orally once everyday. 7. Vitamin D3 50 mcg i.e. 2000 international units once everyday. 8. Flonase 1 spray in each nostril twice everyday. 9. Omeprazole 20 mg orally once everyday. 10.Simvastatin 20 mg at bedtime. ALLERGIES: The patient has no known drug allergies. SOCIAL HISTORY: The patient denies any history of smoking. She drinks occasional wine. She denies any drug use or abuse. She lives with her . FAMILY HISTORY: Father at the age of 54 because of atherosclerosis. Mother at the age of 84 from renal failure and had diabetes at the age of 81. She had 4 brothers, 1 from esophageal cancer, 1 from [place] and the third one from drugs after [place] War, 1 still alive with prostate cancer. The patient has 1 sister, 79-year-old with lung cancer. The patient has 4 sons alive and well and she has 1 daughter alive and well. REVIEW OF SYSTEMS: The patient denies any headache, she denies any blurred vision, double vision, she has no sore throat, she has no difficulty swallowing. RESPIRATORY: The patient denies any coughing, she denies any hemoptysis, she denies any pleurisy, she denies any shortness of breath, she does complain of dyspnea on exertion. CARDIOVASCULAR: The patient denies any chest pain, she denies any orthopnea, she denies any PND, she denies any edema, she does complain of dyspnea on exertion. GASTROINTESTINAL: The patient denies any abdominal pain, she denies any nausea, vomiting, or diarrhea. She denies any hematemesis or hematochezia. She does complain of occasional heartburn. GENITOURINARY: The patient denies any dysuria or hematuria. MUSCULOSKELETAL: Does complain of some osteoarthritic pain. SKIN: Denies any rash. NEUROLOGIC: She does complain of dizziness. She almost passed out. She denies any headache, she denies any seizure. ENDOCRINE: She denies any abnormal blood sugar. PSYCHIATRY: She denies any anxiety or depression. PHYSICAL EXAMINATION: GENERAL: This is an 83-year-old female, sitting up in bed, no apparent distress. VITAL SIGNS: Temperature is 97.9, blood pressure is 110/74, heart rate is 85, respiratory rate is 18, oxygenation is 99% on room air. HEAD, EYES, EARS, NOSE, AND THROAT: Head is atraumatic, normocephalic. Pupils are equal, round, reactive to light and accommodation. Extraocular muscle movements are intact, mucous membranes of the mouth are somewhat dry. NECK: Supple. No JVP. No carotid bruits. No lymphadenopathy. CHEST: Clear to auscultation bilaterally. There are no crackles. No wheezes. No chest wall tenderness. No intercostal retractions. HEART: First heart sound is depressed, second heart sound is normal, there is systolic ejection murmur 2/6 located in the left sternal border. ABDOMEN: Soft, nontender, nondistended. Positive bowel sounds. No hepatosplenomegaly. EXTREMITIES: No edema. No calf tenderness. Dorsalis pedis +2 bilaterally. NEUROLOGIC: Awake, alert, and oriented x3. Cranial nerves 2 through 12 appeared grossly intact, muscle power 5/5 in upper and lower extremities bilaterally. Deep tendon reflexes were normal. Babinski's were flexor bilaterally. LABORATORY DATA: Laboratory evaluation reviewed. A 12-lead EKG initially showed atrial fibrillation with rapid ventricular response. ASSESSMENT AND PLAN: 1. Recurrent atrial fibrillation with rapid ventricular response with episodes of sinus pauses. The patient was taken off flecainide as well as metoprolol, external pacers were placed on the patient, the patient will be started on amiodarone drip per Cardiology recommendation. The patient is scheduled to go for permanent pacemaker in the next 24 hours. Cardiac enzymes are negative. 2. Hypertension and hypertensive cardiovascular disease, I will hold off metoprolol for now as the patient is in the bradycardic episodes. 3. History of atrial fibrillation. Continue patient on Xarelto 20 mg orally once everyday. We will hold for the next 24 hours prior to the surgical intervention. 4. Hyperlipidemia. Continue patient on simvastatin 20 mg orally once everyday. Monitor the patient's lipid panel, keep LDL 55 to 70. 5. Gastroesophageal reflux disease. Continue patient on omeprazole 20 mg orally once everyday. 6. Vitamin D deficiency. Continue vitamin D3 2000 units once everyday. 7. Allergic rhinitis. Continue patient on Flonase nasal spray 1 puff each nostril twice everyday. 8. History of osteopenia of the right hip. Continue calcium and vitamin D supplement. Continue walking exercises. Monitor the patient's dexa scan as an outpatient. 9. DVT prophylaxis. Continue patient on Xarelto and hold it 24 hours prior to the surgical intervention. 10.GI prophylaxis. Continue with PPI. 11.Admit to inpatient. ESTIMATED LENGTH OF STAY: 2 midnights. MMODL / IJN: [id number] /
== END | disposition home or self-care (01) ==
LOC: RADMAMWWP 08:00
PROVIDERS: ATTEND Internal Medicine
DX: Z12.31 Encounter for screening mammogram for malignant neoplasm of breast (principal); Z78.0 Asymptomatic menopausal state; R92.333 Mammographic heterogeneous density, bilateral breasts
CPT/HCPCS: 77063; 77067

== ENCOUNTER 2024-01-18 13:00 | Observation (INO) | payer MEDICARE ==
[~2024-01-18 13:00] MED LIST changes: -ACETAMINOPHEN IV (For NPO) 1,000 MG/100 ML VIAL IVPB ONE; +SODIUM CHLORIDE 0.9% 1,000 ML BAG ONE
[2024-01-18] MEDS ORDERED: METOPROLOL TARTRATE 25 MG TAB ONE (15:06)
[2024-01-18] MEDS ORDERED: DEXTROSE 50% SYRINGE 50 ML IVP ONE (18:01)
[2024-01-18] MEDS ORDERED: MULTIVITAMINS, THERA 1 EACH TAB ONE (22:00)
[2024-01-18] MEDS ORDERED: CALCIUM CARB-VIT D 500 MG-5 MCG TAB ONE (22:00)
[2024-01-18] MEDS ORDERED: PANTOPRAZOLE 40 MG TABLET PO ONE (22:00)
[2024-01-18] MEDS ORDERED: CHOLECALCIFEROL 25 MCG (1000 IU) TABLET ONE (22:01)
[2024-01-18] MEDS ORDERED: ATORVASTATIN 10 MG TAB ONE (22:01)
[2024-01-18] MEDS ORDERED: FLECAINIDE 50 MG TAB ONE (22:03)
[2024-01-19] MEDS ORDERED: AMIODARONE 50 MG/ML 9 ML VIAL IV ONE (22:00)
[2024-01-19] MEDS ORDERED: DEXTROSE 5% IN WATER 100 ML BAG IV ONE (22:00)
[2024-01-19] MEDS ORDERED: IOPAMIDOL-370 100ML BTL ONE (22:00)
[2024-01-19] MEDS ORDERED: AMIODARONE 50 MG/ML 3 ML VIAL IV ONE (22:00)
[2024-01-19] MEDS ORDERED: ROPIVACAINE 5 MG/ML 30 ML VIAL ONE (22:00)
[2024-01-19] MEDS ORDERED: ceFAZolin 1,000 MG VIAL ONE ×2 (22:00→23:07)
[2024-01-19] MEDS ORDERED: LIDOCAINE 1% INJ 10MG/ML (20 ML MDV) ONE (22:00)
[2024-01-19] MEDS ORDERED: SODIUM CHLORIDE 0.9% IRRIGATION ONE (22:00)
[2024-01-19] MEDS ORDERED: SODIUM CHLORIDE 0.9% 50 ML BAG IV ONE (22:00)
[2024-01-19] MEDS ORDERED: SODIUM CHLORIDE 0.9% 250 ML BAG ONE ×2 (22:00→23:07)
[2024-01-19] MEDS ORDERED: DEXTROSE 5% IN WATER 250 ML BAG ONE (22:00)
[2024-01-19] MEDS ORDERED: MIDAZOLAM 2 MG/2 ML VIAL ONE (22:39)
[2024-01-19] MEDS ORDERED: fentaNYL (PF) 50 MCG/ML 2 ML AMP ONE (22:49)
[2024-01-19] MEDS: IOPAMIDOL-370 100ML BTL INJ ONE (23:35)
[2024-01-20] MEDS ORDERED: METOPROLOL SUCCINATE (ER) 50 MG TAB.ER.24H PO ONE ×2 (01:14→09:09)
[2024-01-20] MEDS ORDERED: ACETAMINOPHEN TAB 325 MG TAB ONE (04:42)
[2024-01-20] MEDS ORDERED: METOPROLOL TARTRATE 25 MG TAB ONE (09:08)
[2024-01-20] MEDS ORDERED: RIVAROXABAN 20 MG TAB PO ONE (09:09)
--- NOTE | 2024-02-08 14:35 | XR ---
Elizabeth Kent ID: [id number] : 1940 EXAMINATION TYPE: XR chest 2V DATE OF EXAM: 01/18/2024 COMPARISON: 05/14/2023 HISTORY: 83-year-old female history of atrial fibrillation TECHNIQUE: PA and lateral views FINDINGS: Heart normal size. Atherosclerotic arch calcifications. Similar stranding atelectasis or scar at the right base and trace blunting of the lateral left costophrenic angle without effusion on the lateral view suggesting pleural parenchymal scarring. Mild interstitial prominence is unchanged. Mild hyperin flation is similar as well. No new consolidation or pleural effusion. Cholecystectomy clips. IMPRESSION: Suspect underlying COPD along with some minimal, chronic pleural parenchymal scarring at the lung bas es. No acute process seen.
--- NOTE | 2024-02-13 09:08 | XR ---
Patient Elizabeth Kent C ID [id number] 1940 Age/Gender: 83Y, F Order # N/A Accession # [id number] Procedure CXR 2V Date 01/20/2024 8:04:03 AM EXAMINATION TYPE: XR chest 2V DATE OF EXAM: 01/20/2024 COMPARISON: NONE HISTORY: Shortness of breath TECHNIQUE: Frontal and lateral views of the chest are obtained. FINDINGS: Scattered senescent parenchymal changes noted. Hyperinflation compatible with COPD. Dual-lead pacer n oted with distal leads within the right atrium and right ventricle respectively. No evidence for pneu mothorax. No evidence for infiltrate. No evidence for atelectasis. Heart size is stable. Mediastinal structures are stable and grossly unremarkable. No evidence for hilar prominence. Degenerative changes dorsal spine. IMPRESSION: 1. No evidence for acute pulmonary disease.
--- NOTE | 2024-02-23 14:46 | PN ---
PROGRESS NOTE DATE OF SERVICE: 01/19/2024 HISTORY: The patient is an 83-year-old female who was admitted to the hospital yesterday because of recurrent atrial fibrillation with rapid ventricular response followed by episodes of sinus pauses. The patient went down to 20 beats per minute, she was extremely symptomatic, she was taken off Toprol as well as the flecainide and she was placed on amiodarone drip. She was taken off his O2 as well, she is scheduled to go for permanent pacemaker placement later on this evening. The patient denies any chest pain at this time, she denies any shortness of breath, she did have episodes of dizziness and lightheadedness when she had an episode of bradycardia as well as palpitation. The patient denies any abdominal pain. She denies any nausea, vomiting, or diarrhea. She has no black tarry stool. REVIEW OF SYSTEMS: GENERAL: Patient does not appear to be in acute distress. HEENT: The patient has no headache at this time. She has no blurred vision or double vision. She has no sore throat. She has no loss of hearing. RESPIRATORY: Patient denies any coughing. She denies any hemoptysis. She denies any pleurisy. She does complain of dyspnea on exertion. CARDIOVASCULAR: The patient has no chest pain, she has no shortness of breath, she has no orthopnea. She does complain of dyspnea on exertion. She does complain of nocturia. GASTROINTESTINAL: Patient denies any abdominal pain, nausea, vomiting, diarrhea. She does complain of occasional heartburn. EXTREMITIES: The patient denies any dysuria, she denies any hematuria. She does complain of frequent urination. MUSCULOSKELETAL: She does complain of some osteoarthritic changes in the right hip. SKIN: No unusual rash. NEUROLOGIC: The patient does complain of occasional dizziness, presyncope. She denies any seizure. She denies any headache at this time. ENDOCRINE: No abnormal blood sugar. PSYCHIATRY: Patient denies any anxiety or depression at this time. PHYSICAL EXAMINATION: VITAL SIGNS: Were as follows: Temperature is 98.5, blood pressure is 122/75, heart rate is 75, respirations 18, oxygen saturation was 99% on room air. HEAD, EYES, EARS, NOSE, AND THROAT: Head is atraumatic, normocephalic. Pupils were equal, round, reactive to light and accommodation. Extraocular muscle movements were intact. NECK: Supple. No JVP. No carotid bruits. No lymphadenopathy. CHEST: Clear to auscultation bilaterally. There are no crackles. No wheezes. No chest wall tenderness. No intercostal retractions. HEART: 1st heart sound is depressed, 2nd heart sound is normal. There is systolic ejection murmur 2/6 located in the left sternal border. ABDOMEN: Soft, nontender, nondistended. Positive bowel sounds. No hepatosplenomegaly. EXTREMITIES: No edema. No calf tenderness. Dorsalis pedis +2 bilaterally. NEUROLOGIC EXAMINATION: Awake, alert, and oriented x3. Cranial nerves 2 through 12 appeared grossly intact, muscle power 5/5 in upper and lower extremities bilaterally. LABORATORY: Evaluation reviewed. ASSESSMENT AND PLAN: 1. Paroxysmal atrial fibrillation with episodes of sinus pauses suggestive of sick sinus syndrome. The patient is currently on amiodarone drip. Per Cardiology's recommendation, the patient is scheduled to go for permanent pacemaker placement tonight with Dr. Velez. Continue to hold Xarelto until after the permanent pacemaker placement, then the patient can go back on her metoprolol 12.5 mg orally once a day as this is a class 1 indication for her. 2. Hypertension, hypertensive cardiovascular disease. Continue to monitor the patient's blood pressure very closely. Restart the patient's beta timur 12.5, metoprolol 12.5 mg orally once everyday after the pacemaker placement. 3. Paroxysmal atrial fibrillation. Continue treatment as per order. 4. Hyperlipidemia. Continue low-cholesterol diet. Continue patient on simvastatin in order to substitute atorvastatin 10 mg orally once everyday. Monitor the patient's lipid panel, keep LDL 55-70. 5. Gastroesophageal reflux disease. Continue patient on omeprazole 20 mg once everyday. 6. Osteopenia of the right hip. Continue patient on calcium and vitamin D. The patient's DEXA scan is up to date. 7. Allergic rhinitis. Continue patient on Flonase nasal spray 1 spray in each nostril twice everyday. 8. Deep venous thrombosis prophylaxis. Restart the patient back on Xarelto after the pacemaker placement at 20 mg orally once everyday. 9. Gastrointestinal prophylaxis. Continue patient on omeprazole 20 mg once everyday with substitute. 10.Most likely, the patient will be discharged home in the next 24 hours after permanent pacemaker placement. MMODL / IJN: [id number] /
== END 2024-01-20 12:53 | disposition home or self-care (01) ==
LOC: EC 13:00 → 3NCARDOBS 15:00
PROVIDERS: ADMIT Internal Medicine; ATTEND Internal Medicine
DX: I48.0 Paroxysmal atrial fibrillation (principal); I49.5 Sick sinus syndrome; I45.5 Other specified heart block; R55 Syncope and collapse; I11.9 Hypertensive heart disease without heart failure; E78.2 Mixed hyperlipidemia; K21.9 Gastro-esophageal reflux disease without esophagitis; E55.9 Vitamin D deficiency, unspecified; J30.9 Allergic rhinitis, unspecified; M85.851 Other specified disorders of bone density and structure, right thigh; M81.0 Age-related osteoporosis without current pathological fracture; Z95.0 Presence of cardiac pacemaker; Z79.01 Long term (current) use of anticoagulants; Z79.899 Other long term (current) drug therapy
CPT/HCPCS: 33208; 71046; 93005; 99285

== ENCOUNTER 2024-01-31 04:40 | Emergency (ER) | payer MEDICARE ==
[2024-01-31] MEDS: ONDANSETRON 4 MG/2 ML VIAL IVP STA (05:27)
[2024-01-31] MEDS: SODIUM CHLORIDE 0.9% 1,000 ML IV STA ×2 (05:28→06:50)
[2024-01-31 05:29] LABS: Basophils % (A) 0 %; Eosinophils # (A) 0.2 k/uL (0-0.7); Eosinophils % (A) 2 %; HCT 35.4 % (34.0-46.0); HGB 11.8 gm/dL (11.4-16.0); Lymphocytes # (A) 1.4 k/uL (1.0-4.8); Lymphocytes % (A) 15 %; MCH 31.8 pg (25.0-35.0); MCHC 33.5 g/dL (31.0-37.0); MCV 95.1 fL (80.0-100.0); Monocytes # (A) 0.6 k/uL (0-1.0); Monocytes % (A) 6 %; Neutrophils # (A) 7.4 k/uL (1.3-7.7); Neutrophils % (A) 76 %; Platelet Count 303 k/uL (150-450); RBC 3.72 m/uL (3.80-5.40); RDW 13.3 % (11.5-15.5); WBC 9.6 k/uL (3.8-10.6)
[2024-01-31] MEDS: PANTOPRAZOLE 40 MG/10 ML VIAL IVP STA (05:29)
--- NOTE | 2024-01-31 05:37 | ED ---
General Adult HPI - General Chief complaint: Nausea/Vomiting/Diarrhea Stated complaint: Heart Palpitations, Diarrhea Time Seen by Provider: 01/31/24 05:10 Source: patient, RN notes reviewed, old records reviewed Mode of arrival: wheelchair Limitations: no limitations - History of Present Illness Initial comments: Patient is an 83-year-old female presents emergency department for diarrhea as well as heart palpitations. States she awoke at approximately 1 AM and began having episodes of diarrhea. [place] heart palpitations afterwards. Denies any chest pain or shortness of breath. Has no palpitations now. Denies any nausea or vomiting or abdominal pain. Primary concern is the multiple episodes of diarrhea she had this evening. Was started on new medication by her assistant auditor which she was told could cause the diarrhea but she has been on it for 2 weeks. Currently has no symptoms. Presents for further evaluation at this time. - Related Data Home Medications Medication Instructions Recorded Confirmed Calcium Carbonate/Vitamin D3 2 each PO DAILY 06/08/14 03/25/22 [Calcium 600-Vit D3 400 Tablet] Cholecalciferol [Vitamin D3 (25 1,000 units PO DAILY 06/08/14 03/25/22 Mcg = 1000 Iu)] Vit A/Vit C/Vit E/Zinc/Copper 2 cap PO DAILY 06/08/14 03/25/22 [ICAPS SOFTGEL] Omeprazole [PriLOSEC] 20 mg PO HS 09/03/16 03/25/22 Simvastatin [Zocor] 20 mg PO HS 09/03/16 03/25/22 Warfarin Sodium 2.5 mg PO SUMOTH 09/03/16 03/29/22 Biotin [Biotin Disolve] 10,000 mcg PO DAILY 11/13/21 03/25/22 Multivitamins, Thera [Multivitamin 1 tab PO DAILY 11/13/21 03/25/22 (formulary)] Warfarin [Coumadin] 1.25 mg PO [id number] 11/13/21 03/29/22 Metoprolol Tartrate [Lopressor] 25 mg PO DAILY 03/25/22 03/25/22 Previous Rx's Medication Instructions Recorded Flecainide [Tambocor] 50 mg PO Q12HR #60 tab 06/09/14 Cephalexin [Keflex] 500 mg PO Q12HR 5 Days #10 cap 01/31/24 Allergies Allergy/AdvReac Type Severity Reaction Status Date / Time No Known Allergies Allergy Verified 01/31/24 04:51 Review of Systems ROS Statement: Those systems with pertinent positive or pertinent negative responses have been documented in the HPI. Review of Systems: CONST: Denies fever EYES: Denies blurry vision ENT: Denies nasal congestion C/V: Denies Chest pain RESP: Denies shortness of breath GI: Denies abdominal pain : Denies dysuria SKIN: Denies rash. MSK: Denies joint pain. NEURO: Denies headache ROS Other: All systems not noted in ROS Statement are negative. Past Medical History Past Medical History: Atrial Fibrillation, Eye Disorder, Hyperlipidemia Additional Past Medical History / Comment(s): Macular degeneration. History of Any Multi-Drug Resistant Organisms: None Reported Past Surgical History: Breast Surgery, Cholecystectomy, Hysterectomy Additional Past Surgical History / Comment(s): Bilateral cataract surgery, bilateral breast biopsy, colonoscopy, pacemaker Past Anesthesia/Blood Transfusion Reactions: No Reported Reaction Past Psychological History: No Psychological Hx Reported Smoking Status: Never smoker Past Alcohol Use History: Rare Past Drug Use History: None Reported - Past Family History Father Additional Family Medical History / Comment(s): at age 54 Mother Additional Family Medical History / Comment(s): at age 82 Brother(s) Family Medical History: Cancer, Myocardial Infarction ([place]) Son(s) Family Medical History: No Reported History Daughter(s) Family Medical History: No Reported History General Exam - General Exam Comments Initial Comments: General: Appears in no acute distress. HEAD: Normal with no signs of head trauma. EYES: PERRLA, EOMI, conjunctiva normal, no discharge. ENT: Hearing grossly intact, normal oropharynx. RESPIRATORY: Clear breath sounds bilaterally. No wheezes, rales, or rhonchi. C/V: Regular rate and rhythm. S1 and S2 auscultated, no edema, peripheral pulses 2+ and intact throughout ABD: Abd is soft, nontender, nondistended EXT: Normal range of motion, no obvious deformity SKIN: No rashes or lesions observed on exposed skin. NEURO: Alert and oriented x 4. Cranial nerves II-XII intact. No focal sensory or strength deficits. Limitations: no limitations Course Vital Signs 01/31/24 01/31/24 01/31/24 04:48 07:30 08:48 Temperature 98.0 F 98.9 F Pulse Rate 86 81 68 Respiratory 22 18 18 Rate Blood Pressure 99/55 121/62 139/53 O2 Sat by Pulse 99 95 95 Oximetry Medical Decision Making - Medical Decision Making Was pt. sent in by a medical professional or institution (, LUIS ALBERTO, CONSUMER MARKETING MANAGER, urgent care, hospital, or [facility]...) When possible be specific @ -No Did you speak to anyone other than the patient for history (EMS, parent, family, police, friend...)? What history was obtained from this source @ -No Did you review nursing and triage notes (agree or disagree)? Why? @ -I reviewed and agree with nursing and triage notes Were old charts reviewed (outside hosp., previous admission, EMS record, old EKG, old radiological studies, urgent care reports/EKG's, [facility] records)? Report findings @ -Old charts including EKG reviewed from April 2023. No significant acute change from that time. Differential Diagnosis (chest pain, altered mental status, abdominal pain women, abdominal pain men, vaginal bleeding, weakness, fever, dyspnea, syncope, headache, dizziness, GI bleed, back pain, seizure, CVA, palpatations, mental health, musculoskeletal)? @ -Electrolyte abnormalities, dehydration, diverticulitis. This list is not all inclusive. EKG interpreted by me (3pts min.). @ -As above X-rays interpreted by me (1pt min.). @ -None done CT interpreted by me (1pt min.). @ -CT imaging reveals calcifications of the pancreas. They recommend clinical correlation and possible MRCP if needed however patient has no significant elevations and LFTs, bilirubin's, or pancreatic enzymes. She has no belly pain. Patient also has findings consistent with colitis. Findings consistent with a UTI. U/S interpreted by me (1pt. min.). @ -None done What testing was considered but not performed or refused? (CT, X-rays, U/S, labs)? Why? @ -None What meds were considered but not given or refused? Why? @ -None Did you discuss the management of the patient with other professionals (professionals i.e. LUIS ALBERTO [place]le, CONSUMER MARKETING MANAGER, lab, RT, psych nurse, social insurance analyst, calender runner, teacher, correction officer supervisor, catalytic case operator)? Give summary @ -No Was smoking cessation discussed for >3mins.? @ -No Was critical care preformed (if so, how long)? @ -No Were there social determinants of health that impacted care today? How? (Homelessness, low income, unemployed, alcoholism, drug addiction, transportation, low edu. Level, literacy, decrease access to med. care, longterm, rehab)? @ -No Was there de-escalation of care discussed even if they declined (Discuss DNR or withdrawal of care, Hospice)? DNR status @ -No What co-morbidities impacted this encounter? (DM, HTN, Smoking, COPD, CAD, Cancer, CVA, ARF, Chemo, Hep., AIDS, mental health diagnosis, sleep apnea, morbid obesity)? @ -None Was patient admitted / discharged? Hospital course, mention meds given and route, prescriptions, significant lab abnormalities, going to OR and other pertinent info. @ -Patient presents with diarrhea. Had some palpitations during the episodes of diarrhea earlier today. Currently is asymptomatic. Vital signs within acceptable limits. We will obtain abdominal labs, screening EKG as well as CT abdomen pelvis. She was in agreement this plan. She will be given IV fluids as well as IV Protonix and Zofran. EKG shows no signs of acute ischemia.CT imaging reveals calcifications of the pancreas. They recommend clinical correlation and possible MRCP if needed how ever patient has no significant elevations and LFTs, bilirubin's, or pancreatic enzymes. She has no belly pain. Patient also has findings consistent with colitis. Findings consistent with a UTI. Patient's labs remarkable for mild lactic acidosis of 2.4 likely from the dehydration. Urinalysis remarkable for UTI. I discussed results with the patient. She did start going into atrial fibrillation and missed her morning 5 AM medications, Multaq and metoprolol. Patient be given an additional liter fluid bolus as well as these medications. She will be started on Rocephin for her UTI. Urine culture will be sent. We will observe the patient to ensure she stays out of atrial fibrillation after receives her oral medications. I will provide the patient with a prescription for Keflex. I instructed the patient to follow up with their PCP in the next 1-3 days. I explained that the patient should return to the emergency department if they experience any worsening symptoms. Strict return precautions were discussed with the patient. The patient expressed understanding of these instructions. I answered all questions that the patient had. The patient was discharged home in good conditio n with their prescriptions and follow up information. Undiagnosed new problem with uncertain prognosis? @ -No Drug Therapy requiring intensive monitoring for toxicity (Heparin, Nitro, Insulin, Cardizem)? @ -No Were any procedures done? @ -No Diagnosis/symptom? @ -Diarrhea secondary to enteritis, UTI Acute, or Chronic, or Acute on Chronic? @ -Acute Uncomplicated (without systemic symptoms) or Complicated (systemic symptoms)? @ -Complicated Side effects of treatment? @ -None Exacerbation, Progression, or Severe Exacerbation] @ -No Poses a threat to life or bodily function? @ -Unlikely' Diagnosis/symptom? @ -Atrial fibrillation Acute, or Chronic, or Acute on Chronic? @ -Acute on chronic Uncomplicated (without systemic symptoms) or Complicated (systemic symptoms)? @ -Uncomplicated Side effects of treatment? @ -None Exacerbation, Progression, or Severe Exacerbation] @ -No Poses a threat to life or bodily function? @ -Unlikely if controlled. - Lab Data Result diagrams: 01/31/24 05:18 01/31/24 05:18 Lab Results 01/31/24 01/31/24 01/31/24 Range/Units 05:18 05:18 05:18 WBC 9.6 (3.8-10.6) k/uL RBC 3.72 L (3.80-5.40) m/uL Hgb 11.8 (11.4-16.0) gm/dL Hct 35.4 (34.0-46.0) % MCV 95.1 (80.0-100.0) fL MCH 31.8 (25.0-35.0) pg MCHC 33.5 (31.0-37.0) g/dL RDW 13.3 (11.5-15.5) % Plt Count 303 (150-450) k/uL MPV 7.0 Neutrophils % 76 % Lymphocytes % 15 % Monocytes % 6 % Eosinophils % 2 % Basophils % 0 % Neutrophils # 7.4 (1.3-7.7) k/uL Lymphocytes # 1.4 (1.0-4.8) k/uL Monocytes # 0.6 (0-1.0) k/uL Eosinophils # 0.2 (0-0.7) k/uL Basophils # 0.0 (0-0.2) k/uL PT 13.7 H (10.0-12.5) sec INR 1.3 H (<1.2) APTT 30.6 H (22.0-30.0) sec Sodium 139 (137-145) mmol/L Potassium 4.0 (3.5-5.1) mmol/L Chloride 107 (98-107) mmol/L Carbon Dioxide 28 (22-30) mmol/L Anion Gap 4 mmol/L BUN 13 (7-17) mg/dL Creatinine 0.81 (0.52-1.04) mg/dL Est GFR (CKD-EPI)AfAm 78 (>60 ml/min/1.73 sqM) Est GFR (CKD-EPI)NonAf 67 (>60 ml/min/1.73 sqM) Glucose 128 H (74-99) mg/dL Lactic Ac Sepsis Rflx Plasma Lactic Acid Bhargav (0.7-2.0) mmol/L Calcium 8.8 (8.4-10.2) mg/dL Total Bilirubin 1.0 (0.2-1.3) mg/dL AST 42 H (14-36) U/L ALT 18 (4-34) U/L Alkaline Phosphatase 66 (38-126) U/L Total Protein 6.2 L (6.3-8.2) g/dL Albumin 3.4 L (3.5-5.0) g/dL Amylase 133 H (30-110) U/L Lipase 209 (23-300) U/L Urine Color Urine Appearance (Clear) Urine pH (5.0-8.0) Ur Specific [place] (1.001-1.035) Urine Protein (Negative) Urine Glucose (UA) (Negative) Urine Ketones (Negative) Urine Blood (Negative) Urine Nitrite (Negative) Urine Bilirubin (Negative) Urine Urobilinogen (<2.0) mg/dL Ur Leukocyte Esterase (Negative) Urine RBC (0-5) /hpf Urine WBC (0-5) /hpf Ur Squamous Epith Cells (0-4) /hpf Urine Bacteria (None) /hpf Hyaline Casts (0-2) /lpf Urine Mucus (None) /hpf 01/31/24 01/31/24 01/31/24 Range/Units 05:18 05:40 05:47 WBC (3.8-10.6) k/uL RBC (3.80-5.40) m/uL Hgb (11.4-16.0) gm/dL Hct (34.0-46.0) % MCV (80.0-100.0) fL MCH (25.0-35.0) pg MCHC (31.0-37.0) g/dL RDW (11.5-15.5) % Plt Count (150-450) k/uL MPV Neutrophils % % Lymphocytes % % Monocytes % % Eosinophils % % Basophils % % Neutrophils # (1.3-7.7) k/uL Lymphocytes # (1.0-4.8) k/uL Monocytes # (0-1.0) k/uL Eosinophils # (0-0.7) k/uL Basophils # (0-0.2) k/uL PT (10.0-12.5) sec INR (<1.2) APTT (22.0-30.0) sec Sodium (137-145) mmol/L Potassium (3.5-5.1) mmol/L Chloride (98-107) mmol/L Carbon Dioxide (22-30) mmol/L Anion Gap mmol/L BUN (7-17) mg/dL Creatinine (0.52-1.04) mg/dL Est GFR (CKD-EPI)AfAm (>60 ml/min/1.73 sqM) Est GFR (CKD-EPI)NonAf (>60 ml/min/1.73 sqM) Glucose (74-99) mg/dL Lactic Ac Sepsis Rflx Y Plasma Lactic Acid Bhargav 2.4 H* (0.7-2.0) mmol/L Calcium (8.4-10.2) mg/dL Total Bilirubin (0.2-1.3) mg/dL AST (14-36) U/L ALT (4-34) U/L Alkaline Phosphatase (38-126) U/L Total Protein (6.3-8.2) g/dL Albumin (3.5-5.0) g/dL Amylase (30-110) U/L Lipase (23-300) U/L Urine Color Yellow Urine Appearance Turbid H (Clear) Urine pH 8.5 H (5.0-8.0) Ur Specific [place] 1.018 (1.001-1.035) Urine Protein 1+ H (Negative) Urine Glucose (UA) Negative (Negative) Urine Ketones Negative (Negative) Urine Blood Trace H (Negative) Urine Nitrite Negative (Negative) Urine Bilirubin Negative (Negative) Urine Urobilinogen 6.0 (<2.0) mg/dL Ur Leukocyte Esterase Large H (Negative) Urine RBC 12 H (0-5) /hpf Urine WBC >182 H (0-5) /hpf Ur Squamous Epith Cells 1 (0-4) /hpf Urine Bacteria Rare H (None) /hpf Hyaline Casts 23 H (0-2) /lpf Urine Mucus Rare H (None) /hpf - EKG Data -: EKG Interpreted by Me EKG Comments: 12-lead Electrocardiogram Interpretation Note EKG was reviewed and interpreted by myself. 12-lead ECG performed at 0514 is interpreted by me as revealing normal sinus rhythm at a rate of 68 beats per minute. [place] is normal. [place] interval is 183 ms, QRS duration is 80 ms, QTc is 309 ms.. There were no ST or T wave abnormalities to suggest myocardial ischemia or injury. R wave progression across the precordium was satisfactory. By my interpretation this EKG is non-diagnostic for acute ischemia. Disposition Clinical Impression: Atrial fibrillation, UTI (urinary tract infection), Enteritis Disposition: HOME SELF-CARE Condition: Good Instructions (If sedation given, give patient instructions): Urinary Tract Infection in Women (ED), Acute Diarrhea (ED) Prescriptions: Cephalexin [Keflex] 500 mg PO Q12HR 5 Days #10 cap Is patient prescribed a controlled substance at d/c from ED?: No Referrals: Leigh Strong MD [Primary Care Provider] - 1-2 days Time of Disposition: 08:00
[2024-01-31 05:44] LABS: ALT 18 U/L (4-34); AST 42 U/L (14-36); African American GFR (CKD) 78 (>60 ml/min/1.73 sqM); Albumin 3.4 g/dL (3.5-5.0); Alkaline Phosphatase 66 U/L (38-126); Amylase 133 U/L (30-110); Anion Gap 4 mmol/L; Blood Urea Nitrogen 13 mg/dL (7-17); Calcium 8.8 mg/dL (8.4-10.2); Carbon Dioxide 28 mmol/L (22-30); Chloride 107 mmol/L (98-107); Glucose 128 mg/dL (74-99); Lipase 209 U/L (23-300); Non-African American GFR(CKD) 67 (>60 ml/min/1.73 sqM); Sodium 139 mmol/L (137-145); Total Protein 6.2 g/dL (6.3-8.2)
[2024-01-31 06:14] LABS: INR 1.3 (<1.2); Partial Thromboplastin Time 30.6 sec (22.0-30.0); Prothrombin Time 13.7 sec (10.0-12.5)
--- NOTE | 2024-01-31 06:19 | CT ---
EXAMINATION TYPE: CT abdomen pelvis w con DATE OF EXAM: 01/31/2024 HISTORY: patient c/o diarrhea for the last half an hour. Patient states her heart has been racing for an hour. Patient had pacemaker placed one week ago. CT DLP: 695.1mGycm Automated Exposure Control for Dose Reduction was Utilized. CONTRAST: CT scan of the abdomen and pelvis is performed with IV Contrast, patient injected with 100 mL of Isov ue 300. COMPARISON: None. FINDINGS: LUNG BASES: Partial visualization of right-sided pacemaker.. LIVER/GB: Gallbladder is surgically absent. PANCREAS: New pancreatic ductal dilatation up to 5 mm-image 19. There is 4 mm calcification in the re gion of the duodenal ampulla coronal image 43.. SPLEEN: No significant abnormality is seen. ADRENALS: No significant abnormality is seen. KIDNEYS: Eaco-fh-ameefghl wall thickening in the urinary bladder.. BOWEL: Sigmoid colonic diverticula. No commencing CT evidence for acute diverticulitis. Mild/moderate wall thickening in the sigmoid colon is however present. No abnormal small or large bowel dilatation . UTERUS/ADNEXA: Uterus is surgically absent. LYMPH NODES: No greater than 1cm abdominal or pelvic lymph nodes are appreciated. OSSEOUS STRUCTURES: Osseous hemangioma occupies the L4 vertebra. Moderate multilevel disc space narro wing in the lumbar spine. Seen. OTHER: No significant additional abnormality is seen. IMPRESSION: 1. Possible distal uncomplicated colitis versus probably due to poor distention. Correlate clinically . Differential includes infectious, ischemic, and/or inflammatory etiologies. No bowel obstruction. 2. Mild to moderate abnormal wall thickening in the urinary bladder suspicious for acute cystitis, co rrelate clinically and with urine lab values. 3. There is new pancreatic ductal dilatation. Possible obstructing 4 mm ductal calcification near the duodenal ampulla. Consider ERCP/MRCP follow-up to further evaluate.
[2024-01-31 06:34] LABS: Appearance,Urine Turbid (Clear); Bacteria,Urine Rare /hpf; Bilirubin,Urine Negative (Negative); Blood,Urine Trace (Negative); Color,Urine Yellow; Glucose,Urine (UA) Negative (Negative); Hyaline Casts,Urine 23 /lpf (0-2); Ketones,Urine Negative (Negative); Leukocyte Esterase,Urine Large (Negative); Mucus,Urine Rare /hpf; Nitrite,Urine Negative (Negative); PH, Urine 8.5 (5.0-8.0); Protein,Urine 1+ (Negative); RBC,Urine 12 /hpf (0-5); Specific Gravity,Urine 1.018 (1.001-1.035); Squamous Epithelial Cell,Urine 1 /hpf (0-4); WBC,Urine >182 /hpf (0-5)
[2024-01-31] MEDS: METOPROLOL SUCCINATE (ER) 25 MG TAB.ER.24H PO STA (06:51)
[2024-01-31] MEDS: cefTRIAXone IN SWFI 1,000 MG/10 ML SYRINGE IVP STA (06:53)
[2024-01-31] MEDS: DRONEDARONE 400 MG TAB PO STA (06:58)
[2024-01-31 07:41] VITALS: RESP 18
[2024-01-31 08:51] VITALS: BP 139/53; PULSE 68; TEMP 98.9
== END 2024-01-31 09:10 | disposition home or self-care (01) ==
LOC: EC 04:40
DX: N39.0 Urinary tract infection, site not specified (principal); K52.9 Noninfective gastroenteritis and colitis, unspecified; I48.91 Unspecified atrial fibrillation
CPT/HCPCS: 36415; 93005; 80053; 82150; 83605; 83690; 85025; 85610; 85730; 81001; 87086; 87077; 87186; 74177; 99284; 96374; 96375; 96361 ×2; J0696; Q9967; J2470